=== PATIENT | male | born 1950 | race Caucasian/White ===

== ENCOUNTER 2019-09-25 11:54 | Emergency (ER) | payer OTHER ==
[2019-09-25 12:06] VITALS: BMI 25.0
--- NOTE | 2019-09-25 13:06 | PDOC ---
History of Present Illness - General Chief Complaint: Weakness Stated Complaint: WELFARE CHECK Time Seen by Provider: 09/25/19 12:36 History Source: Patient Exam Limitations: No Limitations - History of Present Illness Initial Comments: Pt is a 69 yo M, with PMH of genetic cerebellar ataxia, insomnia, depression ( on seroquel, welbutrin, and remeron), and HTN, who is presenting via EMS from supervised facility for a welfare check. Pt states he overslept yesterday and today due to the cold weather, and missed his ride to the day program. Pt was awoken by EMS this morning, coming to check on him, concerned that "he may have hurt himself or be in a bad state". Pt ambulates at home with a cane and a walker, and denies any recent falls or head trauma. Pt states he has been taking his medication as prescribed, and denies any SI/HI. He states he used to use alcohol and "downer pills a long time ago," and has not had any recent use. Pt denies any recent fevers/chills, hallucinations, headache, vision changes, syncope, chest pain, palpitations, SOB, nausea/vomiting, abdominal pain, urinary symptoms, diarrhea/constipation, or leg swelling. Pt feels safe in his living situation, has working water and electricity, and food at home. He states he has been eating and drinking as usual. Allergies: NKDA Social: Pt smokes ~4 cigarettes per day. Pt denies any alcohol or non- prescribed drug use. Pt denies any recent travel or sick contacts. Surgical: no relevant history. Family: Sister - cerebellar ataxia 09/25/19 15:40 Past History - Travel Traveled outside of the country in the last 30 days: No Close contact w/someone who was outside of country & ill: No - Past Medical History Allergies/Adverse Reactions: Allergies Allergy/AdvReac Type Severity Reaction Status Date / Time Penicillins Allergy Verified 09/25/19 12:07 Home Medications: Ambulatory Orders NK [No Known Home Medication] 09/25/19 Anemia: Yes COPD: No HTN: Yes Other medical history: BIPOLAR, DEPRESSION, ANXIETY - Psycho Social/Smoking Cessation Hx Smoking History: Current every day smoker Number of Cigarettes Smoked Daily: 5 Information on smoking cessation initiated: No Review of Systems - Review of Systems Able to Perform ROS?: Yes Is the patient limited Dutch proficient: No Constitutional: Yes: Weight Stable. No: Chills, Diaphoresis, Fever, Loss of Appetite, Malaise, Weakness HEENTM: No: Recent change in vision, Nose Congestion, Throat Pain, Throat Swelling, Difficulty Swallowing Respiratory: No: Cough, Orthopnea, Shortness of Breath Cardiac (ROS): No: Chest Pain, Edema, Irregular Heart Rate, Lightheadedness, Palpitations, Syncope, Chest Tightness ABD/GI: No: Constipated, Diarrhea, Nausea, Poor Appetite, Poor Fluid Intake, Vomiting : No: Burning, Dysuria, Frequency, Flank Pain, Hematuria, Pain, Urgency Musculoskeletal: No: Back Pain, Joint Pain, Muscle Pain, Muscle Weakness Integumentary: No: Rash Neurological: Yes: Ataxia (at baseline, no recent changes). No: Headache, Seizure, Weakness, Unsteady Gait, Dizziness Psychiatric: Yes: Depression (at baseline, taking medications). No: Sleep Pattern Change, Emotional Problems, Mood Swings, Change in Appetite Endocrine: No: Increased Urine, Change in Weight Hematologic/Lymphatic: No: Anemia, Blood Clots, Easy Bleeding, Easy Bruising All Other Systems: Reviewed and Negative *Physical Exam - Vital Signs Last Vital Signs Temp Pulse Resp BP Pulse Ox 97.5 F L 72 18 129/70 97 09/25/19 12:00 09/25/19 12:00 09/25/19 12:00 09/25/19 12:00 09/25/19 12:00 - Physical Exam Comments: Vitals stable, pt afebrile. Pt in NAD, normal body habitus. Uses cane in ED for ambulation, able to walk on his own without assistance. Pt alert and oriented x3. Answers all questions cooperatively and appropriately. olive packer generally intact, muscular strength and sensation intact. No midline spinal tenderness, step-offs, or crepitus. Head normocephalic, atraumatic. Eyes PERRLA, EOMI. Oropharynx without erythema or exudates, no LAD b/l. No nasal congestion. Hearing intact. Clear heart sounds, S1/S2, no JVD, b/l pedal edema, or heart murmur. Clear lung sounds, no respiratory distress, wheezes, crackles, or accessory muscle use. No abdominal or CVA tenderness to palpation, no rebound, no guarding. Abdomen soft, non-distended, and with normoactive bowel sounds. Skin without jaundice or rash. 09/25/19 15:49 Medical Decision Making - Medical Decision Making Pt was seen at bedside, also will be seen by attending Dr. Root. Pt presenting for welfare check ([phone], social worker masters Ira Rayo). Pt states he missed his ride due to the cold weather and not wanting to leave his apartment in the cold. Facility is concerned that pt may be drinking alcohol with his medication and that he is depressed. Pt denies any SI/HI, states taking medications appropriately, denies drinking alcohol or drug use, and does not wish to have a psychiatric evaluation at this time. Provided 650 mg PO tylenol for improvement of mild hip pain (baseline for pt). Pt has been medically cleared (no SI/HI, clinically sober, ambulating with his cane in ED, speaking in full sentences without slurring, no nystagmus, does not smell of alcohol). Spoke with facility and faxed discharge papers ([phone]) . Spoke with social work and BAIT PAINTER at facility, explained disposition. Pt safe for d/c back to facility. Arranging transportation. Pt has tolerated PO intake in ED and has been stable and cooperative. 09/25/19 15:49 Discharge - Discharge Information Problems reviewed: Yes Clinical Impression/Diagnosis: Evaluation by medical service required Condition: Good Disposition: HOME - Admission No - Follow up/Referral - Patient Discharge Instructions Patient Printed Discharge Instructions: DI for Depression -- Adult Additional Instructions: You were seen in the ER today for a welfare check, and are medically cleared. You denied any suicidal or homicidal ideation, and you state you are taking your medications as prescribed. You denied any drug or alcohol use, except for remotely in the past. Please follow-up with your psychiatrist to discuss any concerns you may have with your medication within 1-2 days to discuss your visit and make sure your symptoms have improved. Please return to the ER or call if you have any thoughts of hurting yourself or others, lethargy, development of fevers or chills, loss of consciousness, inability to tolerate food or fluids, or any other concerns. - Post Discharge Activity Work/Back to School Note: Back to Work
--- NOTE | 2019-09-25 14:02 | PDOC ---
Documentation entered by Wyatt Arce SCRIBE, acting as scribe for Radha Root MD. Radha Root MD: This documentation has been prepared by the Claude barragan Nirvannie, SCRIBE, under my direction and personally reviewed by me in its entirety. I confirm that the documentation accurately reflects all work, treatment, procedures, and medical decision making performed by me. Attending Attestation - Resident Resident Name: ReynaLoli - ED Attending Attestation I have performed the following: I have examined & evaluated the patient, The case was reviewed & discussed with the resident, I agree w/resident's findings & plan - HPI HPI: 09/25/19 14:01 69 YOM with BIPOLAR, DEPRESSION, ANXIETY, insomnia, genetic cerebellar ataxia, HTN, presenting from facility for welfare check. Pt states he overslept yesterday and today due to the cold weather, and missed his ride to the day program. Pt was awoken by EMS this morning, coming to check on him, concerned that "he may have hurt himself or be in a bad state". Pt ambulates at home with a cane and a walker, and denies any recent falls or head trauma. Pt states he has been taking his medication as prescribed, and denies any SI/HI. He states he used to use alcohol and "downer pills a long time ago," and has not had any recent use. no other complaints except for chronic pain in his right leg. Pt feels safe in his living situation, has working water and electricity, and food at home. He states he has been eating and drinking as usual. 09/25/19 16:02 - Physicial Exam PE: 09/25/19 14:01 Agree with the resident's HPI and PE as documented in the electronic medical record. NAD, well appearing, comfortable, awake and alert. EOMI, PERRL, nl conjunctiva ; neck supple. no respiratory distress.. RRR, lungs clear. HARLEY x4, no focal neuro deficits. No peripheral edema. normal color for ethnicity, WWP. speech clear. no SI. no HI. chronic right clavicle deformity, nontender 09/25/19 14:30 09/25/19 14:55 - Medical Decision Making 09/25/19 14:01 Vital Signs Temp Pulse Resp BP Pulse Ox 97.5 F L 72 18 129/70 97 09/25/19 12:00 09/25/19 12:00 09/25/19 12:00 09/25/19 12:00 09/25/19 12:00 D/W facility transfer back no acute psych intervention. no SI or HI, no complaints. no cp or sob, dizziness or syncope. he is well appearing, will arrange transport back. 09/25/19 16:03
[2019-09-25] MEDS ORDERED: ACETAMINOPHEN 325 MG TABLET (FP) PO ONE (14:54)
[2019-09-25] MEDS ORDERED: ACETAMINOPHEN 325 MG TABLET (FP) ONE (14:57)
[2019-09-25 17:06] VITALS: BP 130/60; PULSE 72; TEMP 98.6
== END 2019-09-25 17:38 | disposition home or self-care (01) ==
LOC: JER 11:54
DX: Z00.00 Encounter for general adult medical examination without abnormal findings (principal); F41.9 Anxiety disorder, unspecified; F31.9 Bipolar disorder, unspecified; F17.210 Nicotine dependence, cigarettes, uncomplicated; G47.00 Insomnia, unspecified; G11.8 Other hereditary ataxias; Z99.89 Dependence on other enabling machines and devices
CPT/HCPCS: 99282-25

== ENCOUNTER 2019-12-16 13:50 | Inpatient (IN) | payer OTHER ==
--- NOTE | 2019-12-16 14:17 | PDOC ---
History of Present Illness - General Stated Complaint: FALL Time Seen by Provider: 12/16/19 13:53 - History of Present Illness Initial Comments: Sourav Estrada is a 59yo man with a PMH of HTN, former alcohol abuse w/ concern for relapse (per director of casework), bipolar disorder, schizoaffective disorder, neuropathy, genetic cerebellar ataxia who was BIBA due to AMS, concern for injury and inability to care for himself. Per EMS, Mr Estrada's rehabilitation case coordinator went to check on him at home, and the pt took 30 minutes to crawl to the door. EMS also reports that his apartment was filthy with dirty clothing, urine, and feces scattered thruoghout. His vitals were WNL and glucose was 92 when EMS arrived. They state that he was oriented x2. Currently, Mr Estrada is oriented to self and knows his age. He knew he was in a hospital one of two times he was asked, and he states that it is late December. He does not make any other statements that logically answer questions or address his complaints and is unable to answer any questions about why he is in the hospital. Past History - Past Medical History Allergies/Adverse Reactions: Allergies Allergy/AdvReac Type Severity Reaction Status Date / Time Penicillins Allergy Verified 12/16/19 14:25 Home Medications: Ambulatory Orders Bupropion HCl [Bupropion Xl] 150 mg PO DAILY 12/16/19 Docusate Sodium [Docusate 100 mg] 100 mg PO BID 12/16/19 Gabapentin 400 mg PO DAILY 12/16/19 Magnesium Oxide [Mag-Ox -] 400 mg PO DAILY 12/16/19 Mirtazapine 30 mg PO DAILY 12/16/19 Propranolol HCl 10 mg PO DAILY 12/16/19 Quetiapine Fumarate [Seroquel -] 200 mg PO HS 12/16/19 Anemia: Yes COPD: No HTN: Yes - Psycho Social/Smoking Cessation Hx Smoking History: Current every day smoker Number of Cigarettes Smoked Daily: 5 Review of Systems - Review of Systems Comments:: Could not obtain due to altered mental status *Physical Exam - Physical Exam General: Sleeping, difficult to wake, cachectic. Multiple injuries in different states of healing. HEENT: Dried blood around mouth and on right forehead. Dry lips. Pupils equal and reactive. No contusion over scalp, no posterior neck tenderness. Cards: RRR, no murmur appreciated Pulm: Comfortable on room air, clear to auscultation bilaterally Abd: Soft, nontender, nondistended Ext: Numerous bruises over extremities w/ occasional scabbed and open abrasions , multiple states of healing. New abrasions to dorsal surface of b/l toes without active bleeding. Nontender deformity over mid right clavicle. Moves all extremities. 1+ BLE pitting edema, R>L. Skin: Numerous superifical injuries as above Neuro: Sleeping, difficult to wake but alert once wakened. Oriented to self, age. Intermittently oriented to "hospital." CN grossly intact, normal speech, motor/sensory grossly intact and symmetric Psych: Pleasant ED Treatment Course - LABORATORY CBC & Chemistry Diagram: 12/16/19 14:30 12/16/19 14:30 - RADIOLOGY Radiology Studies Ordered: Category Date Time Status CHEST X-RAY PORTABLE* [RAD] Stat Radiology 12/16/19 14:10 Ordered Medical Decision Making - Medical Decision Making 12/16/19 14:12 Sourav Estrada is a 59yo man with a PMH of HTN, former alcohol abuse w/ concern for relapse (per director of casework), bipolar disorder, schizoaffective disorder, neuropathy, genetic cerebellar ataxia who was BIBA due to AMS, concern for injury and inability to care for himself. He is somnolent on exam and oriented only to self. Per EMS, he and his house were dirty and the pt was unable to ambulate today. - Numerous contusions, abrasions on exam, especially on extremities. Dried blood over face. Consistent with multiple falls - Unclear whether Mr Estrada fell or was altered. No fever indicating infection. Possible history of alcohol - CBC, CMP, trop, EKG, CXR, UA, UCx, CT head, CT c-spine 12/16/19 17:55 - Labs reviewed. Notable for leukocytosis to 12, Cr 1.4. No other concerning abnormalities - CT head, c-spine without acute injury. C6-C7 disc degeneration noted - EKG w/ sinus rhythm, HR 81, 1st degree block with FL 240, wide QRS at 240, LVF , left axis, no ST elevation 12/16/19 19:11 - No significant abnormalities seen on CT chest/abd/pelvis - Will send microblog for admission for multiple falls, inability to ambulate, inability to care for self 12/16/19 21:24 - UA grossly positive. Abx ordered - CT abd/pelvis with indication of chronic injury w/ b/l rib fractures, soft tissue thickening over abdomen. Left-sided fractures noted as possibly acute, but pt nontender on exam. Also notes overdistended bladder. 12/16/19 22:15 - Patient endorsed to primary team, Dr Ca. Will admit to Dr Ovalle's service. Discussed with Gardenia Root and Jami Joseph PGY2 Discharge - Discharge Information Problems reviewed: Yes Clinical Impression/Diagnosis: Multiple falls, Unable to ambulate, Impaired mobility and ADLs UTI (urinary tract infection) Qualifiers: Urinary tract infection type: site unspecified Hematuria presence: without hematuria Qualified Code(s): N39.0 - Urinary tract infection, site not specified - Admission Yes - Follow up/Referral - Patient Discharge Instructions - Post Discharge Activity
[2019-12-16] MEDS ORDERED: SODIUM CHLORIDE 0.9% 500 ML INFUS.BAG IV ONE (14:41)
--- NOTE | 2019-12-16 15:21 | PDOC ---
Documentation entered by Wyatt Arce SCRIBE, acting as scribe for Radha Root MD. Radha Root MD: This documentation has been prepared by the Claude barragan Nirvannie, SCRIBE, under my direction and personally reviewed by me in its entirety. I confirm that the documentation accurately reflects all work, treatment, procedures, and medical decision making performed by me. Attending Attestation - Resident Resident Name: Alexia Joseph - ED Attending Attestation I have performed the following: I have examined & evaluated the patient, The case was reviewed & discussed with the resident, I agree w/resident's findings & plan, Exceptions are as noted - HPI HPI: 12/16/19 16:02 HPI The patient is a 59YOM with significant past medical history of HTN, former alcohol abuse w/ concern for relapse (per foster care case manager), bipolar disorder, schizoaffective disorder, neuropathy, genetic cerebellar ataxia who presents to the ED via EMS with AMS. As per EMS, they were called by the social sciences lecturer secondary to the patient taking 30 min to crawl to the door upon their arrival. EMS notes the social sciences lecturer was concerned that the patient could no longer care for himself secondary to multiple bruises, urine, and feces. History is limited secondary to patients clinical condition. Allergies: PCN Past Medical History: HTN, former alcohol abuse w/ concern for relapse (per foster care case manager), bipolar disorder, schizoaffective disorder, neuropathy, genetic cerebellar ataxia Social history: Lives alone Former alcohol abuse. No tobacco or drug use. Meds: as documented in EMR - Physicial Exam PE: 12/16/19 16:02 General: GCS 15 NAD, +Disheveled. +Looks older than stated age. HEENT: +Small superficial left medial upper eye laceration. PERRL, EOMI. Airway intact. No battles sign or raccoon eyes. No e/o ocular. +Adentulous. No e/o septal hematoma, nasal bridge stable. Neck: neck supple, no midline C spine tenderness or deformity, ROM intact. No anterior mass or crepitus, trachea midline. Resp: Lungs clear bilaterally Chest: no clavicle or chest wall tenderness or crepitus CVS: RRR, 2+ pulses throughout. Abdomen: Abdomen soft, nontender, nondistended. Back: Back nontender, no midline spinal tenderness along cervical/thoracic/ lumbar spine, FROM, no stepoffs. MSK: +Ecchymosis to the blt shins. +Abrasions to the left lateral knees with ecchymosis. +healing ecchymosis to the blt thighs. Pelvis stable, Extremities symmetric,+old right upper clavicular deformities; no pain on axial loading. FROM in all extrem. Neuro: Alert, oriented appropriately. CN II-XII grossly symmetric and intact. no focal neuro deficits. Sensation and strength intact throughout. Skin: +Ulceration to the right 2nd and 3rd toes. Superficial ulceration to the left toes. Ulceration to the bilateral knees, normal color and well perfused. No seatbelt signs at neck, chest or abdomen. - Medical Decision Making 12/16/19 15:21 Vital Signs Temp Pulse Resp BP Pulse Ox 97.6 F 79 22 H 110/68 95 12/16/19 14:17 12/16/19 14:17 12/16/19 14:17 12/16/19 14:17 12/16/19 14:17 Vital signs reviewed within normal limits, patient is disheveled not in good condition guarded, CT horowitz scans indicated to evaluate for intra-abdominal injury given patient is unable to provide much history in the state that he was found in by ambulance labs and lytes, mild elevation in ck CT horowitz scans eval for trauma/bleeding. CTH/c spine, unwitnessed fall and poor condition/disheveled. Bedside E fast was done negative for intra-peritoneal free fluid normal lung sliding, no effusions. CT head with atrophic changes otherwise no focal intracranial lesion or bleed or CVA, C-spine with degenerative changes no acute fracture or subluxation CT horowitz scans were done no intracranial head injury, there is focal subcutaneous soft tissue thickening along the left posterior lateral aspect of the abdomen this could be from sequelae of unwitnessed trauma also focal soft tissue thickening of the adjacent left quadratus lumborum muscle, possible hepatic cirrhosis, gastrohepatic ligament varices and splenorenal shunt, over distended bladder otherwise no acute pathology is noted CT chest with possible rib fractures on the left 7-8th ribs as well as chronic bilateral rib fractures. Mild T6 vertebral body compression fracture likely chronic with its appearance and trace left-sided pleural effusion no O2 requirement, no desats with the rib fx, unreliable exam as pt has been somnolent, arousable to pain stimuli and voice but does not wince to palpation of the area on 2ndary exam. admission. unable to care for self. unsafe for discharge admitting to hospitalist service. 12/18/19 08:55 12/18/19 08:56 Heart Score/ECG Review #1 ECG reviewed & interpreted by me at: 14:30 General ECG Interpretation: Sinus Rhythm, Normal Rate, Normal Intervals Compared to previous ECG there are: Previous ECG unavail 12/16/19 15:20 EKG normal sinus rhythm 81 bpm, first-degree heart block, narrow QRS, ST and T wave segments and morphology normal. Nonspecific T wave abnormalities
[2019-12-16 15:51] LABS: BASO % 0.1 % (0-2.0); HEMATOCRIT 30.3 % (35.4-49); HEMOGLOBIN 10.3 GM/dL (11.7-16.9); LYMPH % 5.4 % (8-40); MCH 33.6 pg (25.7-33.7); MEAN CELL VOLUME 98.9 fl (80-96); MEAN PLT VOLUME 8.4 fl (7.5-11.1); MONO % 5.7 % (3.8-10.2); NEUT % 87.8 % (42.8-82.8); PLATELET COUNT 184 K/MM3 (134-434); RBC 3.07 M/mm3 (4.00-5.60); RDW 15.9 % (11.9-15.9); WHITE BLOOD COUNT 12.5 K/mm3 (4.0-10.0)
[2019-12-16 16:04] LABS: INR 1.15 (0.83-1.09); PROTHROMBIN TIME (PATIENT) 13.6 SEC (9.7-13.0)
[2019-12-16 16:07] LABS: ACTIVATED PTT 26.7 SECONDS (25.2-36.5)
[2019-12-16 16:47] LABS: ALK PHOS 162 U/L (45-117); ANION GAP 9 MMOL/L (8-16); BILIRUBIN,TOTAL 1.3 mg/dL (0.2-1); BLOOD UREA NITROGEN 19.4 mg/dL (7-18); CALCIUM 9.4 mg/dL (8.5-10.1); CHLORIDE 107 mmol/L (98-107); CO2 25 mmol/L (21-32); CREATININE 1.4 mg/dL (0.55-1.3); GLUCOSE,RANDOM 79 mg/dL (74-106); POTASSIUM 3.5 mmol/L (3.5-5.1); SGOT/AST 54 U/L (15-37); SGPT/ALT 30 U/L (13-61); SODIUM 141 mmol/L (136-145); TOT PROT 7.2 g/dl (6.4-8.2)
[2019-12-16 19:49] LABS: EPI CELLS 87.2 /HPF (0-5/HPF); HYALINE CASTS 1068.86 /lpf (0-8); URINE RBC 141.8 /hpf (0-4); URINE WBC 14663 /hpf (0-5)
[2019-12-16 19:54] LABS: URINE APPEARANCE TURBID; URINE BILIRUBIN NEGATIVE (NEGATIVE); URINE COLOR YELLOW; URINE GLUCOSE (UA) NEGATIVE (NEGATIVE); URINE KETONE TRACE (NEGATIVE)
[2019-12-16 19:55] LABS: URINE LEUK ESTERASE LARGE (NEGATIVE); URINE NITRITE PSITIVE (NEGATIVE); URINE PROTEIN 100 (NEGATIVE); URINE UROBILINOGEN 0.2 mg/dL (0.2-1.0)
[2019-12-16 20:18] LABS: COCAINE, UR NEGATIVE ng/ml (CUTOFF=300); METHADONE, UR NEGATIVE ng/ml (CUTOFF=300); OPIATES, URI NEGATIVE ng/ml (CUTOFF=300); PHENCYCLIDINE,URINE NEGATIVE ng/ml (CUTOFF=25); URINE AMPHETAMINES NEGATIVE ng/ml (CUTOFF=500); URINE BARBITURATES NEGATIVE ng/ml (CUTOFF=200); URINE BENZODIAZEPINES NEGATIVE ng/ml (CUTOFF=200)
--- NOTE | 2019-12-16 20:50 | PN ---
Teaching Attending Note Name of Resident: Duglas Ca ATTENDING PHYSICIAN STATEMENT I saw and evaluated the patient. I reviewed the resident's note and discussed the case with the resident. I agree with the resident's findings and plan as documented. SUBJECTIVE: Patient is a 59 year old man with a PMH of HTN, Alcohol abuse, Bipolar disorder , Schizoaffective disorder, Neuropathy, Genetic cerebellar ataxia and Penicillin allergy BIBA due to AMS, concern for injury and inability to care for himself. Per EMS, his case resolution specialist went to check on him at home, and the patient took 30 minutes to crawl to the door. EMS also reports that his apartment was filthy with dirty clothing, urine, and feces scattered throughout. His vitals were WNL and glucose was 92 when EMS arrived. They state that he was oriented to person and place. In the ER he was oriented to self and knows his age. He knew he was in a hospital one of two times he was asked, and he states that it is late December. He does not make any other statements that logically answer questions or address his complaints and is unable to answer any questions about why he is in the hospital. Denies tobacco or illicit drug use. No sick contacts or recent travels. History is limited secondary to patient s clinical condition. OBJECTIVE: Alert Vital Signs Period Temp Pulse Resp BP Sys/Penn Pulse Ox Last 24 Hr 97.6 F 74-83 20-22 110-115/59-69 95-98 HEENT: No Jaundice, eye redness or discharge, PERRLA, EOMI. Normocephalic, atraumatic. External ears are normal and hearing is grossly intact. No nasal discharge. Neck: Supple, nontender. No palpable adenopathy or thyromegaly. No JVD Chest: Good effort. Clear to auscultation and percussion. Heart: Regular. No S3, rub or murmur Abdomen: Not distended, soft, nontender and no HSM. No rebound or guarding. Normal bowel sounds. Ext: Peripheral pulses intact. No leg edema. Area of erythema and tenderness on the right valerio. Skin: Warm and dry. Multiple brusies and ecchymosis. No petechiae or rash. Neuro: Alert. Oriented to person and place. CN 2-12 grossly intact. Sensation grossly intact in all four extremities and DTR are symmetric. Psych: Appropriate mood and affect. Good insight. Home Medications Medication Instructions Recorded Bupropion HCl [Bupropion Xl] 150 mg PO DAILY 12/16/19 Docusate Sodium [Docusate 100 mg] 100 mg PO BID 12/16/19 Gabapentin 400 mg PO DAILY 12/16/19 Magnesium Oxide [Mag-Ox -] 400 mg PO DAILY 12/16/19 Mirtazapine 30 mg PO DAILY 12/16/19 Propranolol HCl 10 mg PO DAILY 12/16/19 Quetiapine Fumarate [Seroquel -] 200 mg PO HS 12/16/19 Abnormal Lab Results 12/16/19 12/16/19 12/16/19 14:30 14:30 14:30 WBC 12.5 H RBC 3.07 L Hgb 10.3 L Hct 30.3 L MCV 98.9 H Absolute Neuts (auto) 11.0 H Neutrophils % 87.8 H Lymphocytes % 5.4 L PT with INR 13.60 H INR 1.15 H BUN 19.4 H Creatinine 1.4 H Total Bilirubin 1.3 H AST 54 H Alkaline Phosphatase 162 H Creatine Kinase 349 H CK-MB (CK-2) 9.6 H Albumin 3.0 L Urine Ketones Salicylates 12/16/19 12/16/19 18:55 20:17 WBC RBC Hgb Hct MCV Absolute Neuts (auto) Neutrophils % Lymphocytes % PT with INR INR BUN Creatinine Total Bilirubin AST Alkaline Phosphatase Creatine Kinase CK-MB (CK-2) Albumin Urine Ketones Trace H Salicylates < 1.7 L ASSESSMENT AND PLAN: 1. UTI/Multiple falls - Etiology of multiple falls and inability to ambulate is unclear. Sepsis workup done. Has UTI and will treat with IV Aztreonam pending culture. Will also treat with Doxycycline for possible right valerio cellulitis. I allergic to penicillin and QTc is prolonged. CT head, C-spine without acute injury. C6-C7 disc degeneration noted. No significant abnormalities seen on CT chest/abdomen/pelvis. CXR shows cardiomegaly, unfolded aorta, hilar prominence and increased interstitial markings. EKG shows NSR with rate of 81, 1st degree AV block with IN 240, wide QRS at 240, LVF, left axis, no ST elevation and prolonged QTc. Will hydrate gently to address rhabdomyoysis, get RUQ sonogram, NH3, hepatitis serology and trend LFTs. Consult PT and Neurology. Needs referrral to inpatient Rehab facility. Will continue comprehensive care for all of patients comorbid conditions. 2. Hypoalbuminemia - Possibly due to combined effects of malnutrition and inflammation associated with comorbid chronic conditions. Will ensure adequate dietary protein intake and also consult pulp press tender. 3. MARKO - May be partly due to rhabdomyolysis. Will hydrate and monitor urine output. Monitor calcium and phosphate. Will consult nephrology and avoid nephrotoxic agents such as NSAIDS, aminoglycosides, contrast dyes and certain Alternative medicine products. 4. Anemia - Likely multifactorial. Will do basic anemia work up including serial stool guaiacs, reticulocyte count and iron studies. Would benefit from Procrit therapy once iron replete. 5. Alcohol abuse - Implement [facility] alcohol withdrawal protocol and do neurochecks. Implement seizure, fall and aspiration precautions. Treat with thiamine and folic acid and monitor electrolytes (Ca,Mg,K,P). Counseled patient about abstaining from alcohol. Will consult radiological health specialist and refer to alcohol detox upon discharge. 6. Hypertension - Restart suitable outpatient antihypertensive drugs when clinically appropriate. Revise regimen to ensure [id number] excellent BP control and guidance counselor patient on the injurious effects of uncontrolled hypertension. Nonpharmacologic measures to control hypertension like weight loss , salt restriction and exercise discussed. Importance of adherence to treatment regimen and attainment of normotension emphasized. 7. DVT prophylaxis - Heparin 5000u sq tid. 8. Advance directives - Full code
[2019-12-16] MEDS ORDERED: CEFTRIAXONE 1,000 MG in DEXTROSE 5%-WATER - 50 ML IVPB ONE (21:24)
[2019-12-16] MEDS ORDERED: CEFTRIAXONE 1 GM/50 ML BAG ONE (21:26)
[2019-12-17] MEDS ORDERED: QUEtiapine FUMARATE 100 MG TABLET (FP) ONE ×2 (00:45→20:26)
[2019-12-17] MEDS ORDERED: QUEtiapine FUMARATE 200 MG TABLET PO ONE (01:00)
[2019-12-17] MEDS ORDERED: FOLIC ACID INJECTION - 1 MG, THIAMINE HCL 100 MG, MULTIVIT INJECTION ADULT 10 ML in SOD... IVPB ONE (01:00)
[2019-12-17] MEDS: LACTATED RINGERS SOLUTION 1,000 ML/1,000 ML INFUS.BAG IV SCH ×2 (01:11→21:33)
--- NOTE | 2019-12-17 02:43 | HP ---
CHIEF COMPLAINT: fall, inability to ambulate PCP: unknown HISTORY OF PRESENT ILLNESS: Sourav Estrada is a 69 year old male with a past medical history of genetic cerebellar ataxia, insomnia, depression, HTN, bipolar disorder, schizoaffective disorder presenting after a home health care case manager checked in on the patient and was not able to get a response until he let her in after a half an hour of crawling on the floor. EMS was called and noted that the patient's apartment was in dissaray and there was urine and feces throughout the apartment and the patient was brought in for further evaluation. The social service coordinator had expressed to the ED staff that they believed that the patient had been using alcohol. There was also concern for recurrent falls and injury as EMS and the social service coordinator had noticed multiple bruises, maharaj, healing wounds throughout the patient's body. On interview the patient was not able to give a coherent story noting that he had fallen 2 weeks ago but was on the floor yesterday, went food shopping 2 days ago and went to a bar with his friends. Only endorsed hip pain at first but noted that he could move his legs well and denied hip pain later in the interview. Denied cp, sob, abd pain, n/v/c/d, dizziness, lightheadedness, fever , chills, visual changes, dysuria, hematuria, frequency, urgency, hesitancy. Endorsed that he does drink alcohol. Denied sick contacts or recent travel. ER course was notable for: (1) WBC 12.5 with left shift, BUn 19.4 CRE 1.4 (unknown baseline), bilirubin 1.3 , AST 54, ALT 30, ALk phos 162, CK 349, UA with nitrites, +LE, many bacteria and WBC, elevated epithelial cells. Repeat UA with less epithelial cells and continued signs of infection. (2) CXR with R atelectasis, with moderate atrophy, no acute lesions. IMAGING: Cervical spine CT: The alignment is satisfactory. No gross acute fracture or dislocation are identified. No jumped facets are identified. Multilevel degenerative disc disease mainly at C6-C7 level with bilateral uncovertebral hypertrophy moderately narrowing the foramina and likely impinging both C7 nerve roots. Correlate for further evaluation. Moderate size calcified plaques at the common carotid bifurcation, bilaterally. Head CT: Moderate atrophy. No gross evidence of a focal intracranial lesion or hemorrhage is seen. Chest CT: Mildly offset fractures of the left seventh and eighth ribs are noted along the ventral lateral borders which are probably acute. Correlate clinically. Multiple chronic bilateral rib fractures are seen. A mild T6 vertebral body compression fracture is noted which is probably chronic in nature. However if there is focal symptomatology in that region MRI evaluation is suggested. There appears to be a trace left pleural effusion (versus representing mild focal pleural thickening). Abdomen/pelvis CT: Focal subcutaneous soft tissue thickening is seen along the left posterolateral aspect of the abdomen. Note is also made of focal soft tissue thickening of the subjacent left quadratus lumborum muscle. Probable hepatic cirrhosis. Gastrohepatic ligament varices. Splenorenal shunt. The urinary bladder appears mildly overdistended which could be on a physiologic basis versus mild/early retention. Correlate clinically. Recent Travel: denies PAST MEDICAL HISTORY: as above PAST SURGICAL HISTORY: denies Social History: Smoking: endorses being a current smoker with 4 cigarettes per day Alcohol: endorses being current drinker Drugs: denies Allergies Penicillins Allergy (Verified 12/16/19 14:25) HOME MEDICATIONS: Home Medications Medication Instructions Recorded Bupropion HCl [Bupropion Xl] 150 mg PO DAILY 12/16/19 Docusate Sodium [Docusate 100 mg] 100 mg PO BID 12/16/19 Gabapentin 400 mg PO DAILY 12/16/19 Magnesium Oxide [Mag-Ox -] 400 mg PO DAILY 12/16/19 Mirtazapine 30 mg PO DAILY 12/16/19 Propranolol HCl 10 mg PO DAILY 12/16/19 Quetiapine Fumarate [Seroquel -] 200 mg PO HS 12/16/19 REVIEW OF SYSTEMS CONSTITUTIONAL: Absent: fever, chills, diaphoresis, generalized weakness, malaise, loss of appetite, weight change HEENT: Absent: rhinorrhea, nasal congestion, visual changes CARDIOVASCULAR: Absent: chest pain, syncope, palpitations, irregular heart rate, lightheadedness , RESPIRATORY: Absent: cough, shortness of breath, dyspnea with exertion, orthopnea GASTROINTESTINAL: constipation Absent: abdominal pain, abdominal distension, nausea, vomiting, diarrhea, GENITOURINARY: Absent: dysuria, frequency, urgency, hesitancy, hematuria, flank pain, MUSCULOSKELETAL: hip pain Absent: myalgia, joint swelling, back pain, neck pain SKIN: bruising throughout and lesions on foot Absent: rash, itching, pallor HEMATOLOGIC/IMMUNOLOGIC: Absent: easy bleeding, easy bruising, lymphadenopathy, frequent infections ENDOCRINE: Absent: unexplained weight gain, unexplained weight loss, heat intolerance, cold intolerance NEUROLOGIC: Absent: headache, focal weakness or paresthesias, dizziness, unsteady gait, seizure, mental status changes, bladder or bowel incontinence PSYCHIATRIC: Absent: anxiety, depression, suicidal or homicidal ideation, hallucinations. PHYSICAL EXAMINATION Vital Signs - 24 hr 12/16/19 12/16/19 12/16/19 14:17 18:51 20:41 Temperature 97.6 F Pulse Rate 79 Pulse Rate [ 74 83 Radial] Respiratory 22 H 20 20 Rate Blood Pressure 110/68 Blood Pressure 113/69 115/59 L [Left Arm] O2 Sat by Pulse 95 98 97 Oximetry (%) GENERAL: Awake, alert, and oriented to self and location, not to time. In no acute distress. Pressured speech and hyperactive. Malnourished appearing. HEAD: Scattered bruising, no orourke sign or raccoon eyes. EYES: Pupils equal, round and reactive to light, extraocular movements intact. EARS, NOSE, THROAT: Oropharynx clear without exudates. Dry mucous membranes. NECK: Normal range of motion, supple without lymphadenopathy, JVD. LUNGS: Breath sounds equal, clear to auscultation bilaterally. No wheezes, and no crackles. No accessory muscle use. HEART: Regular rate and rhythm, normal S1 and S2 without murmur. ABDOMEN: Soft, nontender, not distended, normoactive bowel sounds, no guarding, no rebound, no masses. MUSCULOSKELETAL: Normal range of motion at all joints. No bony deformities or tenderness. UPPER EXTREMITIES: 2+ pulses, warm, well-perfused. No cyanosis. No peripheral edema. LOWER EXTREMITIES: 2+ pulses, warm, well-perfused. No calf tenderness. No peripheral edema. NEUROLOGICAL: Cranial nerves II-XII intact. 4/5 muscle strength on the bilateral lower extremities. 5/5 on the upper extremities. Sensation intact to gross touch throughout. Dysmetria on FTN R>L. PSYCHIATRIC: Somewhat cooperative. Tangential and pressured speech. Non-violent and non-frightening delusional thought. SKIN: Warm, dry, decreased turgor, many scattered excoriations, ecchymoses, scabbing sounds. R valerio area of erythema, warmth, and tenderness to the touch. Laboratory Results - last 24 hr 12/16/19 12/16/19 12/16/19 14:30 14:30 14:30 WBC 12.5 H RBC 3.07 L Hgb 10.3 L Hct 30.3 L MCV 98.9 H MCH 33.6 MCHC 34.0 RDW 15.9 Plt Count 184 MPV 8.4 Absolute Neuts (auto) 11.0 H Neutrophils % 87.8 H Lymphocytes % 5.4 L Monocytes % 5.7 Eosinophils % 1.0 Basophils % 0.1 Nucleated RBC % 0 PT with INR 13.60 H INR 1.15 H PTT (Actin FS) 26.7 Sodium 141 Potassium 3.5 Chloride 107 Carbon Dioxide 25 Anion Gap 9 BUN 19.4 H Creatinine 1.4 H Est GFR (CKD-EPI)AfAm 58.99 Est GFR (CKD-EPI)NonAf 50.90 Random Glucose 79 Calcium 9.4 Total Bilirubin 1.3 H AST 54 H ALT 30 Alkaline Phosphatase 162 H Creatine Kinase 349 H Creatine Kinase Index 2.7 CK-MB (CK-2) 9.6 H Troponin I < 0.02 Total Protein 7.2 Albumin 3.0 L Urine Color Urine Appearance Urine pH Ur Specific [place] Urine Protein Urine Glucose (UA) Urine Ketones Urine Blood Urine Nitrite Urine Bilirubin Urine Urobilinogen Ur Leukocyte Esterase Urine WBC (Auto) Urine RBC (Auto) Urine Casts (Auto) U Pathogenic Cast Auto U Epithel Cells (Auto) Urine Bacteria (Auto) Salicylates Opiates Screen Methadone Screen Acetaminophen Barbiturate Screen Phencyclidine Screen Ur Amphetamines Screen MDMA (Ecstasy) Screen Benzodiazepines Screen Cocaine Screen U Marijuana (THC) Screen Alcohol, Quantitative 12/16/19 12/16/19 12/16/19 14:30 18:55 18:55 WBC RBC Hgb Hct MCV MCH MCHC RDW Plt Count MPV Absolute Neuts (auto) Neutrophils % Lymphocytes % Monocytes % Eosinophils % Basophils % Nucleated RBC % PT with INR INR PTT (Actin FS) Sodium Potassium Chloride Carbon Dioxide Anion Gap BUN Creatinine Est GFR (CKD-EPI)AfAm Est GFR (CKD-EPI)NonAf Random Glucose Calcium Total Bilirubin AST ALT Alkaline Phosphatase Creatine Kinase Creatine Kinase Index CK-MB (CK-2) Troponin I Total Protein Albumin Urine Color Yellow Urine Appearance Turbid Urine pH 6.0 Ur Specific [place] 1.022 Urine Protein 100 Urine Glucose (UA) Negative Urine Ketones Trace H Urine Blood Moderate Urine Nitrite Psitive Urine Bilirubin Negative Urine Urobilinogen 0.2 Ur Leukocyte Esterase Large Urine WBC (Auto) 39362 Urine RBC (Auto) 141.8 Urine Casts (Auto) 1068.86 U Pathogenic Cast Auto Negative U Epithel Cells (Auto) 87.2 Urine Bacteria (Auto) 2009.7 Salicylates Opiates Screen Negative Methadone Screen Negative Acetaminophen Barbiturate Screen Negative Phencyclidine Screen Negative Ur Amphetamines Screen Negative MDMA (Ecstasy) Screen Negative Benzodiazepines Screen Negative Cocaine Screen Negative U Marijuana (THC) Screen Negative Alcohol, Quantitative < 3 12/16/19 12/16/19 20:17 20:17 WBC RBC Hgb Hct MCV MCH MCHC RDW Plt Count MPV Absolute Neuts (auto) Neutrophils % Lymphocytes % Monocytes % Eosinophils % Basophils % Nucleated RBC % PT with INR INR PTT (Actin FS) Sodium Potassium Chloride Carbon Dioxide Anion Gap BUN Creatinine Est GFR (CKD-EPI)AfAm Est GFR (CKD-EPI)NonAf Random Glucose Calcium Total Bilirubin AST ALT Alkaline Phosphatase Creatine Kinase Creatine Kinase Index CK-MB (CK-2) Troponin I Total Protein Albumin Urine Color Urine Appearance Urine pH Ur Specific [place] Urine Protein Urine Glucose (UA) Urine Ketones Urine Blood Urine Nitrite Urine Bilirubin Urine Urobilinogen Ur Leukocyte Esterase Urine WBC (Auto) Urine RBC (Auto) Urine Casts (Auto) U Pathogenic Cast Auto U Epithel Cells (Auto) Urine Bacteria (Auto) Salicylates < 1.7 L Opiates Screen Methadone Screen Acetaminophen <2.0 Barbiturate Screen Phencyclidine Screen Ur Amphetamines Screen MDMA (Ecstasy) Screen Benzodiazepines Screen Cocaine Screen U Marijuana (THC) Screen Alcohol, Quantitative EKG--> 1st degree AV block, left axis deviation, QRS widening and LVH, no ST segment changes, QTc 520 ASSESSMENT/PLAN: Sourav Estrada is a 69 year old male with a past medical history of genetic cerebellar ataxia, insomnia, depression, HTN, bipolar disorder, schizoaffective disorder admitted for poor ability to ambulate likely secondary to cerebellar ataxia and UTI. Poor Ability to Ambulate - with history of cerebellar ataxia and UTI - UA as above - CT head, cervical spine, chest, abd/pelvis as above - aztreonam 0.5g q12, has PCN allergy and long QTc - ID consulted - Ucx - Physical therapy - social work consult - continue to monitor CK and gently hydrate at LR 75cc/hr - neurology consulted - will likely need SNF R valerio cellulitis - doxycycline 100mg bid - ID consulted MARKO - likely in the setting of poor intake and rhabdomyolysis - kidney/bladder U/S - FeNa 0.6% suggesting pre-renal etiology, continue hydration with LR at 75cc/hr - renal consulted - bladder scan as CT noted overdistended urinary bladder, can consider ma if retaining Anemia - likely in setting of alcohol use - iron studies - B12/folate - FOBT - may benefit from iron supplementation Hepatic cirrhosis - as noted on CT - likely from alcohol abuse - hepatic panel ordered - Utox negative, alcohol negative, acetaminophen negative - RUQ U/S - ammonia level - continue to monitor Alcohol Abuse - currently CIWA 0 - banana bag - MVI, folate, thiamine - seizure, fall precautions, bedrest - continue to monitor for withdrawals - addiction medicine consulted HTN - on propranolol Schizoaffective Disorder/Bipolar - continue home seroquel, wellbutrin, mirtazapine - reevaluate need for medications as QTc prolonged DVT PPx - heparin 5000 units subq tid FEN - LR at 75cc/hr - continue to monitor electrolytes and replete as necessary - sodium controlled diet Dispo - continue to monitor on Med-surg Family Medical History Family Hx Nuerologic Problems: Sister (cerebellar ataxia) Visit type - Emergency Visit Emergency Visit: Yes ED Registration Date: 12/16/19 Care time: The patient presented to the Emergency Department on the above date and was hospitalized for further evaluation of their emergent condition. - New Patient This patient is new to me today: Yes Date on this admission: 12/17/19 - Critical Care Critical Care patient: No
[2019-12-17] MEDS ORDERED: AZTREONAM 0.5 GM in DEXTROSE 5%-WATER - 50 ML IVPB SCH (03:00)
[2019-12-17 03:15] LABS: EPI CELLS 7.1 /HPF (0-5/HPF); HYALINE CASTS 6 /lpf (0-8); PH,URINE 6.5 (5.0-8.0); URINE APPEARANCE TURBID; URINE BACTERIA 1723.5 /hpf (NEGATIVE); URINE BILIRUBIN NEGATIVE (NEGATIVE); URINE COLOR YELLOW; URINE GLUCOSE (UA) NEGATIVE (NEGATIVE); URINE KETONE TRACE (NEGATIVE); URINE LEUK ESTERASE 3+ (NEGATIVE); URINE NITRITE POSITIVE (NEGATIVE); URINE PROTEIN TRACE (NEGATIVE); URINE UROBILINOGEN 0.2 mg/dL (0.2-1.0); URINE WBC 990 /hpf (0-5)
[2019-12-17] MEDS ORDERED: AZTREONAM 0.5 GM in DEXTROSE 5%-WATER - 100 ML IVPB SCH (03:30)
[2019-12-17] MEDS ORDERED: HEPARIN NA (PORCINE) 5,000 UNITS/ML 1ML VIAL ONE (06:24)
[2019-12-17] MEDS: HEPARIN NA (PORCINE) 5,000 UNITS/ML 1ML VIAL SQ SCH ×3 (06:55→21:32)
[2019-12-17 08:16] LABS: BASO % 0.1 % (0-2.0); EOS % 2.6 % (0-4.5); HEMATOCRIT 28.8 % (35.4-49); HEMOGLOBIN 9.8 GM/dL (11.7-16.9); LYMPH % 9.9 % (8-40); MCH 33.8 pg (25.7-33.7); MEAN CELL VOLUME 99.5 fl (80-96); MEAN PLT VOLUME 8.2 fl (7.5-11.1); MONO % 6.7 % (3.8-10.2); NEUT % 80.7 % (42.8-82.8); PLATELET COUNT 173 K/MM3 (134-434); RDW 16.2 % (11.9-15.9); WHITE BLOOD COUNT 9.7 K/mm3 (4.0-10.0)
[2019-12-17 09:26] LABS: ALBUMIN 2.4 g/dl (3.4-5.0); BLOOD UREA NITROGEN 15.5 mg/dL (7-18); CALCIUM 8.9 mg/dL (8.5-10.1); MAGNESIUM 2.2 mg/dL (1.8-2.4); POTASSIUM 3.4 mmol/L (3.5-5.1); TOT PROT 6.2 g/dl (6.4-8.2)
[2019-12-17] MEDS ORDERED: ENOXAPARIN NA (PORCINE) 40 MG/0.4 ML DISP.SYRIN SQ SCH (10:00)
[2019-12-17] MEDS ORDERED: DOXYCYCLINE HYCLATE 100 MG CAPSULE PO SCH (10:00)
[2019-12-17] MEDS: DOCUSATE SODIUM 100 MG CAPSULE (FP) PO SCH ×2 (11:21→21:32)
[2019-12-17] MEDS: GABAPENTIN 400 MG CAPSULE PO SCH (11:22)
[2019-12-17] MEDS: MULTIVITAMINS (DAILY MVI) TABLET (FP) PO SCH (11:22)
[2019-12-17] MEDS: MAGNESIUM OXIDE 400 MG TABLET (FP) PO SCH (11:22)
[2019-12-17] MEDS: THIAMINE HCL 100 MG TABLET (FP) PO SCH (11:23)
[2019-12-17] MEDS: FOLIC ACID 1 MG TABLET (FP) PO SCH (11:23)
--- NOTE | 2019-12-17 12:18 | PN ---
Progress Note (short form) - Note Progress Note: ID CONSULT DICTATED CELLULITIS R LE R/O SEPSIS SECONDARY TO SKIN SOURCE UTI PCN ALLERGY AWAIT C/S EMPIRIC VANCOMYCIN/AZTREONAM
--- NOTE | 2019-12-17 12:42 | EKG ---
Test Reason : Blood Pressure : / mmHG Vent. Rate : 081 BPM Atrial Rate : 081 BPM P-R Int : 240 ms QRS Dur : 126 ms QT Int : 448 ms P-R-T Axes : 043 -39 058 degrees QTc Int : 520 ms SINUS RHYTHM WITH 1ST DEGREE A-V BLOCK POSSIBLE LEFT ATRIAL ENLARGEMENT LEFT AXIS DEVIATION LEFT VENTRICULAR HYPERTROPHY WITH QRS WIDENING ABNORMAL ECG NO PREVIOUS ECGS AVAILABLE Confirmed by INNA ROGERS, DORY ([id number]) on 12/17/2019 12:42:23 PM Referred By: Confirmed By:DORY KEITH MD
[2019-12-17] MEDS ORDERED: VANCOMYCIN 1 GRAM (PRE-DOCKED) 1,000 MG/250 ML BAG IVPB ONE (13:09)
--- NOTE | 2019-12-17 13:12 | CONS ---
INFECTIOUS DISEASE CONSULTATION DATE OF CONSULTATION: DATE OF DICTATION: 12/17/2019 HISTORY: The patient is a 69-year-old male who was evaluated for sepsis. History was obtained primarily from the chart as he does not give a reliable history. He was admitted to the hospital on December 16, 2019, after he was noted to have altered mental status. According to the chart, he was called upon by his director of casework services at home and was found to be in deplorable condition. The patient was disheveled with evidence of fecal and urinary incontinence. His residence was reported as being [facility]. He was taken to the emergency room where he was noted to have abrasions on his lower extremities. He does not give a reliable history. He denies any fall or loss of consciousness. He has no focal complaint at the present time. In the emergency room, he was also noted to have an elevated white blood cell count. Cultures were obtained. He was empirically treated with doxycycline and aztreonam. He denies any chest pain, shortness of breath, cough, or sputum production. Denies any dysuria, hematuria, vomiting, or diarrhea. PAST MEDICAL HISTORY: Positive for schizoaffective disorder, bipolar disorder, hypertension, alcohol abuse. ALLERGIES: PENICILLIN. Patient reports throat swelling at the age of 5 or 6. MEDICATIONS: Include aztreonam, doxycycline, Wellbutrin, Colace, folic acid, Neurontin, propranolol. SOCIAL HISTORY: He lives in the community. Apparently lives alone. He has a positive history of tobacco use. SYSTEMS REVIEW: Neurologic: No reported loss of consciousness, seizure activity, or focal weakness. Cardiac: Negative chest pain or palpitations. Respiratory: Negative cough or sputum production. Gastrointestinal: Negative vomiting or diarrhea. Genitourinary: Positive urinary tract infection. LABORATORY DATA: White blood cell count on admission 12.5, presently 9.7, hematocrit 28.8, platelets 173, creatinine 1.0. AST 38, ALT 24, alkaline phosphatase 137. Urinalysis; 990 white cells. Toxicology screen negative. Cultures are pending. PHYSICAL EXAMINATION: General: He is awake. He is somewhat cachectic appearing. Vital Signs: Temperature 98.2, blood pressure 127/63, pulse 82 regular, respirations 18 per minute. HEENT: Sclerae anicteric. Heart: Sounds S1, S2. Lungs: Clear. No rhonchi, rales, or wheezing. Abdomen: Soft. No tenderness elicited. Extremities: Negative for edema. There are ecchymotic areas noted on the upper and lower extremities bilaterally. There is an area of healed abrasion with surrounding erythema involving the right pretibial area. The right 2nd toe is swollen and red with dry ulcerations over the right 2nd and 3rd toes. There are ulcerations present over the left 2nd, 3rd, 4th, and 5th toes. No purulent drainage. IMPRESSION: 1. Cellulitis of the right lower extremity and right foot. 2. Rule out sepsis secondary to skin source. 3. Urinary tract infection. 4. History of major PENICILLIN allergy. PLAN: Await sepsis workup. Empiric antibiotic coverage in this patient with PENICILLIN allergy with vancomycin and Azactam. Local wound care. We will follow. Thank you for the kind referral ARLIN SALAZAR M.D. [id number]
[2019-12-17] MEDS: VANCOMYCIN 1 GRAM (PRE-DOCKED) 1,000 MG/250 ML BAG IVPB SCH (13:15)
[2019-12-17] MEDS ORDERED: LACTULOSE 20 GM/30 ML UDC (FOR ORAL USE ONLY) PO ONE (16:50)
--- NOTE | 2019-12-17 17:25 | PN ---
Physical Exam: SUBJECTIVE: Patient seen and examined in bed. He was admitted overnight s/p being found on floor of home by [employer]. Pt states he did not fall and is unsure why he was on the floor. This AM he offers no complaints. OBJECTIVE: Vital Signs Temp Pulse Resp BP Pulse Ox 99.0 F 74 17 128/66 98 12/17/19 18:00 12/17/19 18:00 12/17/19 18:00 12/17/19 18:00 12/17/19 21:00 GENERAL: AOx3, in no acute distress. HEAD: NCAT EYES: EBONI, EOMI, conjunctiva clear. ENT: Ears normal, nares patent, oropharynx clear without exudates. Moist mucous membranes. NECK: Normal range of motion, supple without lymphadenopathy, JVD, or masses. LUNGS: CTAB. No wheezes, and no crackles. No accessory muscle use. HEART: RRR s1 s2 ABDOMEN: Soft, BS present in all 4 quadrants, non-distended, no JVD, MUSCULOSKELETAL: No bony deformities or tenderness. No CVA tenderness. UPPER EXTREMITIES: 2+ pulses, warm, well-perfused. No cyanosis. No clubbing. No peripheral edema. LOWER EXTREMITIES: 2+ pulses, warm, well-perfused. No calf tenderness. No peripheral edema. NEUROLOGICAL: Cranial nerves II-XII intact. 4/5 muscle strength on the bilateral lower extremities. 5/5 on the upper extremities. Sensation intact to gross touch throughout. Dysmetria on FTN R>L. PSYCHIATRIC: Somewhat cooperative. Tangential and pressured speech. Non-violent and non-frightening delusional thought. SKIN: Diffuse bruises over entirety of body. BL valerio eschars, erythematous, non- purulent. Extensor surface lesion on LE digits. Laboratory Results - last 24 hr 12/16/19 12/16/19 12/16/19 14:30 14:30 18:55 WBC RBC Hgb Hct MCV MCH MCHC RDW Plt Count MPV Absolute Neuts (auto) Neutrophils % Lymphocytes % Monocytes % Eosinophils % Basophils % Nucleated RBC % Sodium Potassium Chloride Carbon Dioxide Anion Gap BUN Creatinine Est GFR (CKD-EPI)AfAm Est GFR (CKD-EPI)NonAf Random Glucose Calcium Phosphorus Magnesium Total Bilirubin Direct Bilirubin AST ALT Alkaline Phosphatase Ammonia Creatine Kinase Creatine Kinase Index 2.7 CK-MB (CK-2) 9.6 H Total Protein Albumin Vitamin B12 Serum Folate Urine Color Yellow Urine Appearance Turbid Urine pH 6.0 Ur Specific [place] 1.022 Urine Protein 100 Urine Glucose (UA) Negative Urine Ketones Trace H Urine Blood Moderate Urine Nitrite Psitive Urine Bilirubin Negative Urine Urobilinogen 0.2 Ur Leukocyte Esterase Large Urine WBC (Auto) 77548 Urine RBC (Auto) 141.8 Urine Casts (Auto) 1068.86 U Pathogenic Cast Auto Negative U Epithel Cells (Auto) 87.2 Urine Bacteria (Auto) 2009.7 Ur Random Creatinine Ur Random Sodium Ur Random Potassium Ur Random Chloride Salicylates Opiates Screen Methadone Screen Acetaminophen Barbiturate Screen Phencyclidine Screen Ur Amphetamines Screen MDMA (Ecstasy) Screen Benzodiazepines Screen Cocaine Screen U Marijuana (THC) Screen Alcohol, Quantitative < 3 12/16/19 12/16/19 12/16/19 18:55 20:17 20:17 WBC RBC Hgb Hct MCV MCH MCHC RDW Plt Count MPV Absolute Neuts (auto) Neutrophils % Lymphocytes % Monocytes % Eosinophils % Basophils % Nucleated RBC % Sodium Potassium Chloride Carbon Dioxide Anion Gap BUN Creatinine Est GFR (CKD-EPI)AfAm Est GFR (CKD-EPI)NonAf Random Glucose Calcium Phosphorus Magnesium Total Bilirubin Direct Bilirubin AST ALT Alkaline Phosphatase Ammonia Creatine Kinase Creatine Kinase Index CK-MB (CK-2) Total Protein Albumin Vitamin B12 Serum Folate Urine Color Urine Appearance Urine pH Ur Specific [place] Urine Protein Urine Glucose (UA) Urine Ketones Urine Blood Urine Nitrite Urine Bilirubin Urine Urobilinogen Ur Leukocyte Esterase Urine WBC (Auto) Urine RBC (Auto) Urine Casts (Auto) U Pathogenic Cast Auto U Epithel Cells (Auto) Urine Bacteria (Auto) Ur Random Creatinine Ur Random Sodium Ur Random Potassium Ur Random Chloride Salicylates < 1.7 L Opiates Screen Negative Methadone Screen Negative Acetaminophen <2.0 Barbiturate Screen Negative Phencyclidine Screen Negative Ur Amphetamines Screen Negative MDMA (Ecstasy) Screen Negative Benzodiazepines Screen Negative Cocaine Screen Negative U Marijuana (THC) Screen Negative Alcohol, Quantitative 12/17/19 12/17/19 12/17/19 01:50 01:50 06:04 WBC RBC Hgb Hct MCV MCH MCHC RDW Plt Count MPV Absolute Neuts (auto) Neutrophils % Lymphocytes % Monocytes % Eosinophils % Basophils % Nucleated RBC % Sodium Potassium Chloride Carbon Dioxide Anion Gap BUN Creatinine Est GFR (CKD-EPI)AfAm Est GFR (CKD-EPI)NonAf Random Glucose Calcium Phosphorus Magnesium Total Bilirubin Direct Bilirubin AST ALT Alkaline Phosphatase Ammonia 65.20 H Creatine Kinase Creatine Kinase Index CK-MB (CK-2) Total Protein Albumin Vitamin B12 Serum Folate Urine Color Yellow Urine Appearance Turbid Urine pH 6.5 Ur Specific [place] 1.043 H Urine Protein Trace Urine Glucose (UA) Negative Urine Ketones Trace H Urine Blood 1+ H Urine Nitrite Positive H Urine Bilirubin Negative Urine Urobilinogen 0.2 Ur Leukocyte Esterase 3+ H Urine WBC (Auto) 990 Urine RBC (Auto) Urine Casts (Auto) 6 U Pathogenic Cast Auto U Epithel Cells (Auto) 7.1 Urine Bacteria (Auto) 1723.5 Ur Random Creatinine 82.0 Ur Random Sodium 50 Ur Random Potassium 27.0 Ur Random Chloride 50 L Salicylates Opiates Screen Methadone Screen Acetaminophen Barbiturate Screen Phencyclidine Screen Ur Amphetamines Screen MDMA (Ecstasy) Screen Benzodiazepines Screen Cocaine Screen U Marijuana (THC) Screen Alcohol, Quantitative 12/17/19 12/17/19 12/17/19 06:04 06:04 06:04 WBC 9.7 RBC 2.90 L Hgb 9.8 L Hct 28.8 L MCV 99.5 H MCH 33.8 H MCHC 34.0 RDW 16.2 H Plt Count 173 MPV 8.2 Absolute Neuts (auto) 7.8 Neutrophils % 80.7 Lymphocytes % 9.9 D Monocytes % 6.7 Eosinophils % 2.6 D Basophils % 0.1 Nucleated RBC % 0 Sodium 146 H Potassium 3.4 L Chloride 112 H Carbon Dioxide 27 Anion Gap 7 L BUN 15.5 Creatinine 1.0 Est GFR (CKD-EPI)AfAm 88.61 Est GFR (CKD-EPI)NonAf 76.45 Random Glucose 91 Calcium 8.9 Phosphorus 3.0 Magnesium 2.2 Total Bilirubin 1.0 Direct Bilirubin 0.5 H AST 38 H ALT 24 Alkaline Phosphatase 137 H Ammonia Creatine Kinase 136 Creatine Kinase Index CK-MB (CK-2) Total Protein 6.2 L Albumin 2.4 L Vitamin B12 1916 H Serum Folate 23 H Urine Color Urine Appearance Urine pH Ur Specific [place] Urine Protein Urine Glucose (UA) Urine Ketones Urine Blood Urine Nitrite Urine Bilirubin Urine Urobilinogen Ur Leukocyte Esterase Urine WBC (Auto) Urine RBC (Auto) Urine Casts (Auto) U Pathogenic Cast Auto U Epithel Cells (Auto) Urine Bacteria (Auto) Ur Random Creatinine Ur Random Sodium Ur Random Potassium Ur Random Chloride Salicylates Opiates Screen Methadone Screen Acetaminophen Barbiturate Screen Phencyclidine Screen Ur Amphetamines Screen MDMA (Ecstasy) Screen Benzodiazepines Screen Cocaine Screen U Marijuana (THC) Screen Alcohol, Quantitative Active Medications Bupropion HCl (Wellbutrin Xl -) 150 mg PO DAILY [facility] Last Admin: 12/17/19 11:23 Dose: 150 mg Docusate Sodium (Colace -) 100 mg PO BID [facility] Last Admin: 12/17/19 21:32 Dose: Not Given Folic Acid (Folic Acid -) 1 mg PO DAILY [facility] Last Admin: 12/17/19 11:23 Dose: 1 mg Gabapentin (Neurontin -) 400 mg PO DAILY [facility] Last Admin: 12/17/19 11:22 Dose: 400 mg Heparin Sodium (Porcine) (Heparin -) 5,000 unit SQ TID [facility] Last Admin: 12/17/19 21:32 Dose: 5,000 unit Lactated Ringer's (Lactated Ringers Solution) 1,000 ml in 1,000 mls @ 75 mls/ hr IV ASDIR [facility] Last Admin: 12/17/19 21:33 Dose: 75 mls/hr Vancomycin HCl (Vancomycin (Pre-Docked)) 1,000 mg in 250 mls @ 166.667 mls/hr IVPB Q12H [facility]; Protocol Last Admin: 12/17/19 13:15 Dose: 166.667 mls/hr Aztreonam 1 gm/ Dextrose 50 mls @ 100 mls/hr IVPB Q8H-IV [facility]; Protocol Last Admin: 12/17/19 18:45 Dose: 100 mls/hr Magnesium Oxide (Mag-Ox -) 400 mg PO DAILY [facility] Last Admin: 12/17/19 11:22 Dose: 400 mg Mirtazapine (Remeron -) 30 mg PO HS [facility] Last Admin: 12/17/19 21:33 Dose: 30 mg Multivitamins/Minerals/Vitamin C (Tab-A-Vit -) 1 tab PO DAILY [facility] Last Admin: 12/17/19 11:22 Dose: 1 tab Propranolol HCl (Inderal -) 10 mg PO DAILY [facility] Last Admin: 12/17/19 11:23 Dose: 10 mg Quetiapine Fumarate (Seroquel -) 100 mg PO [facility] Last Admin: 12/17/19 21:33 Dose: 100 mg Thiamine HCl (Vitamin B1 -) 100 mg PO DAILY [facility] Last Admin: 12/17/19 11:23 Dose: 100 mg ASSESSMENT/PLAN: 69 y/o male PMH HTN, genetic cerebellar ataxia, insomnia, depression, bipolar disorder, schizoaffective disorder admitted for poor ability to ambulate likely secondary to cerebellar ataxia and UTI. # Difficulty ambulating - Normally walks with walker but attempts walking freely and often falls - Collaborated history with Dr. Henry of [facility] ([employer] [facility]) who strongly believes etoh abuse is primary factor in current presentation - U tox neg, high b12/folate - Cerebellar ataxia (age 3) - PT - Fall precautions # UTI - PNC allergy - Aztreonam # RIGHT LE extensor surface cellulitis, distal LE cellulitis - ID consulted - Vancomycin and aztreonam #MARKO - Poss 2/2 dehydration - IVF # Macrocytic anemia - H/H 9.8/28.8 - MCV 99.5 - High b12 (1916)/folate (23) - Given h/o etoh abuse, thiamine, MVI, folic acid # Schizoaffective disorder/bipolar depression - Continue current home regimen: seroquel (reduced the dose of seroquel to 100mg due to Qtc prolongation of 520), buproprion 150 mg po qd, mirtazapine 30 mg po qd - Consult psych # F/E/N - NS - Cont. to monitor - Low sodium diet # DVT prophylaxis - Heparin SQ # Disposition - Med/surg Sumit Lebron MD Visit type - Emergency Visit Emergency Visit: No - New Patient This patient is new to me today: Yes Date on this admission: 12/17/19 - Critical Care Critical Care patient: No ATTENDING PHYSICIAN STATEMENT I saw and evaluated the patient. I reviewed the resident's note and discussed the case with the resident. I agree with the resident's findings and plan as documented. SUBJECTIVE: OBJECTIVE: ASSESSMENT AND PLAN:
--- NOTE | 2019-12-17 18:17 | PN ---
Teaching Attending Note Name of Resident: Sumit Lebron ATTENDING PHYSICIAN STATEMENT I saw and evaluated the patient. I reviewed the resident's note and discussed the case with the resident. I agree with the resident's findings and plan as documented. SUBJECTIVE: Patient was admitted overnight , was found on the floor of his home by his home health care. denies any fever or chills. OBJECTIVE: Vital Signs Temperature 99.0 F 12/17/19 18:00 Pulse Rate 74 12/17/19 18:00 Respiratory Rate 17 12/17/19 18:00 Blood Pressure 128/66 12/17/19 18:00 O2 Sat by Pulse Oximetry (%) 98 12/17/19 16:15 GENERAL: The patient is awake, alert, and fully oriented, in no acute distress. HEAD: Normal with no signs of trauma. EYES: PERRL, extraocular movements intact, sclera anicteric, conjunctiva clear. ENT: Ears normal, oropharynx clear without exudates, moist mucous membranes. NECK: Trachea midline, full range of motion, supple. LUNGS: Breath sounds equal, clear to auscultation bilaterally, no wheezes, no crackles, no accessory muscle use. HEART: Regular rate and rhythm, S1, S2 without murmur, rub or gallop. ABDOMEN: Soft, NT,ND, normoactive bowel sounds, no guarding, no rebound, no hepatosplenomegaly, no masses. EXTREMITIES: 2+ pulses, warm, well-perfused, positive cellulitis of right chin . NEUROLOGICAL: Cranial nerves II through XII grossly intact. Normal speech, gait not observed. PSYCH: Normal mood, normal affect. SKIN: Warm, dry, normal turgor, multiple lower extremity bruises from falls CBCD WBC 9.7 K/mm3 (4.0-10.0) 12/17/19 06:04 RBC 2.90 M/mm3 (4.00-5.60) L 12/17/19 06:04 Hgb 9.8 GM/dL (11.7-16.9) L 12/17/19 06:04 Hct 28.8 % (35.4-49) L 12/17/19 06:04 MCV 99.5 fl (80-96) H 12/17/19 06:04 MCHC 34.0 g/dl (32.0-35.9) 12/17/19 06:04 RDW 16.2 % (11.9-15.9) H 12/17/19 06:04 Plt Count 173 K/MM3 (134-434) 12/17/19 06:04 MPV 8.2 fl (7.5-11.1) 12/17/19 06:04 CMP Sodium 146 mmol/L (136-145) H 12/17/19 06:04 Potassium 3.4 mmol/L (3.5-5.1) L 12/17/19 06:04 Chloride 112 mmol/L (98-107) H 12/17/19 06:04 Carbon Dioxide 27 mmol/L (21-32) 12/17/19 06:04 Anion Gap 7 MMOL/L (8-16) L 12/17/19 06:04 BUN 15.5 mg/dL (7-18) 12/17/19 06:04 Creatinine 1.0 mg/dL (0.55-1.3) 12/17/19 06:04 Random Glucose 91 mg/dL (74-106) 12/17/19 06:04 Calcium 8.9 mg/dL (8.5-10.1) 12/17/19 06:04 Total Bilirubin 1.0 mg/dL (0.2-1) 12/17/19 06:04 AST 38 U/L (15-37) H 12/17/19 06:04 ALT 24 U/L (13-61) 12/17/19 06:04 Alkaline Phosphatase 137 U/L (45-117) H 12/17/19 06:04 Total Protein 6.2 g/dl (6.4-8.2) L 12/17/19 06:04 Albumin 2.4 g/dl (3.4-5.0) L 12/17/19 06:04 CARDIAC ENZYMES Creatine Kinase 136 U/L (26-308) 12/17/19 06:04 Troponin I < 0.02 ng/ml (0.00-0.05) 12/16/19 14:30 Current Medications Generic Name Dose Route Start Last Admin Trade Name Freq PRN Reason Stop Dose Admin Bupropion HCl 150 mg 12/17/19 10:00 12/17/19 11:23 Wellbutrin Xl - PO 150 mg DAILY [facility] Administration Docusate Sodium 100 mg 12/17/19 10:00 12/17/19 11:21 Colace - PO 100 mg BID [facility] Administration Folic Acid 1 mg 12/17/19 10:00 12/17/19 11:23 Folic Acid - PO 1 mg DAILY [facility] Administration Gabapentin 400 mg 12/17/19 10:00 12/17/19 11:22 Neurontin - PO 400 mg DAILY [facility] Administration Heparin Sodium (Porcine) 5,000 unit 12/17/19 06:00 12/17/19 14:19 Heparin - SQ 5,000 unit TID [facility] Administration Lactated Ringer's 1,000 ml in 1,000 mls @ 75 mls/hr 12/16/19 23:45 12/17/19 01:11 Lactated Ringers Solution IV 75 mls/hr ASDIR [facility] Administration Vancomycin HCl 1,000 mg in 250 mls @ 166.667 mls/hr 12/17/19 13:00 12/17/19 13:15 Vancomycin (Pre-Docked) IVPB 166.667 mls/hr Q12H [facility] Administration Protocol Aztreonam 1 gm/ Dextrose 50 mls @ 100 mls/hr 12/17/19 18:00 IVPB Q8H-IV [facility] Protocol Magnesium Oxide 400 mg 12/17/19 10:00 12/17/19 11:22 Mag-Ox - PO 400 mg DAILY [facility] Administration Mirtazapine 30 mg 12/17/19 22:00 Remeron - PO [facility] Multivitamins/Minerals/Vitamin C 1 tab 12/17/19 10:00 12/17/19 11:22 Tab-A-Vit - PO 1 tab DAILY [facility] Administration Propranolol HCl 10 mg 12/17/19 10:00 12/17/19 11:23 Inderal - PO 10 mg DAILY [facility] Administration Quetiapine Fumarate 200 mg 12/17/19 22:00 Seroquel - PO HS [facility] Thiamine HCl 100 mg 12/17/19 10:00 12/17/19 11:23 Vitamin B1 - PO 100 mg DAILY [facility] Administration Home Medications Medication Instructions Recorded Bupropion HCl [Bupropion Xl] 150 mg PO DAILY 12/16/19 Docusate Sodium [Docusate 100 mg] 100 mg PO BID 12/16/19 Gabapentin 400 mg PO TID 12/16/19 Magnesium Oxide [Mag-Ox -] 400 mg PO BID 12/16/19 Mirtazapine 30 mg PO DAILY 12/16/19 Propranolol HCl 10 mg PO BID 12/16/19 Quetiapine Fumarate [Seroquel -] 200 mg PO HS 12/16/19 Cholecalciferol (Vitamin D3) 2,000 unit PO DAILY 12/17/19 [Vitamin D3] Docusate Sodium [Colace] 200 mg PO HS 12/17/19 Doxepin HCl 50 mg PO HS 12/17/19 Polyethylene Glycol 3350 [Miralax 17 gm PO ASDIR 12/17/19 (For Daily Use) -] Quetiapine Fumarate [Seroquel -] 100 mg PO AM 12/17/19 Quetiapine Fumarate [Seroquel -] 150 mg PO HS 12/17/19 Urine Test Results Urine Color Yellow 12/17/19 01:50 Urine Appearance Turbid 12/17/19 01:50 Urine pH 6.5 (5.0-8.0) 12/17/19 01:50 Ur Specific [place] 1.043 (1.010-1.035) H 12/17/19 01:50 Urine Protein Trace (NEGATIVE) 12/17/19 01:50 Urine Glucose (UA) Negative (NEGATIVE) 12/17/19 01:50 Urine Ketones Trace (NEGATIVE) H 12/17/19 01:50 Urine Blood 1+ (NEGATIVE) H 12/17/19 01:50 Urine Nitrite Positive (NEGATIVE) H 12/17/19 01:50 Urine Bilirubin Negative (NEGATIVE) 12/17/19 01:50 Ur Leukocyte Esterase 3+ (NEGATIVE) H 12/17/19 01:50 Urine Test Results Urine Color Yellow 12/17/19 01:50 Urine Appearance Turbid 12/17/19 01:50 Urine pH 6.5 (5.0-8.0) 12/17/19 01:50 Ur Specific [place] 1.043 (1.010-1.035) H 12/17/19 01:50 Urine Protein Trace (NEGATIVE) 12/17/19 01:50 Urine Glucose (UA) Negative (NEGATIVE) 12/17/19 01:50 Urine Ketones Trace (NEGATIVE) H 12/17/19 01:50 Urine Blood 1+ (NEGATIVE) H 12/17/19 01:50 Urine Nitrite Positive (NEGATIVE) H 12/17/19 01:50 Urine Bilirubin Negative (NEGATIVE) 12/17/19 01:50 Ur Leukocyte Esterase 3+ (NEGATIVE) H 12/17/19 01:50 EKG--> 1st degree AV block, left axis deviation, QRS widening and LVH, no ST segment changes, QTc 520 ASSESSMENT/PLAN: Patient is a 69yom with PMHx of genetic cerebellar ataxia, insomnia, depression , HTN, bipolar disorder, schizoaffective disorder admitted for s/p fall with difficulty to ambulate with RLE cellultis and was found to have UTI. # Acute UTI on azactam IV since allergic to pcn #R valerio cellulitis with 2nd toe cellulitis: ON VAnco as per ID #MARKO O iv hYDration #macrocytic Anemia( iron studies, B12/folate) follow #Hx of Etoh Dependency : On thiamine, MVI, folic acid # Hepatic cirrhosis: likely from alcohol abuse, hepatic panel ordered, RUQ U/ S, ammonia level #HTN: on propranolol #Schizoaffective Disorder/Bipolar - continue home seroquel(reduced the dose of seroquel to 100mg due to Qtc prolongation of 520), wellbutrin, mirtazapine, # QTc prolonged 520 due to the meds: reduced Seroquel to 100mg from 200mg, pscy consult dr claire for further medication adjustment #Poor Ability to Ambulate with hx of of cerebellar ataxia (age 3 ) DVT PPx: heparin 5000
[2019-12-17] MEDS: AZTREONAM 1 GM in DEXTROSE 5%-WATER - 50 ML IVPB SCH (18:45)
[2019-12-17] MEDS ORDERED: DOCUSATE SODIUM 100 MG CAPSULE (FP) PO ONE (20:26)
[2019-12-17] MEDS ORDERED: MIRTAZAPINE 15 MG TABLET (FP) ONE (20:26)
[2019-12-17] MEDS ORDERED: MIRTAZAPINE 30 MG TABLET (FP) PO SCH (22:00)
[2019-12-17] MEDS ORDERED: QUEtiapine FUMARATE 200 MG TABLET PO SCH (22:00)
[2019-12-17] MEDS ORDERED: QUEtiapine FUMARATE 100 MG TABLET (FP) PO SCH (22:00)
[2019-12-18] MEDS ORDERED: AZTREONAM 1 GM VIAL (RESTRICTED TO ID) ONE ×3 (00:49→16:43)
[2019-12-18] MEDS ORDERED: DEXTROSE 5%-WATER - 50 ML IVPB ONE ×3 (00:50→16:43)
[2019-12-18] MEDS: VANCOMYCIN 1 GRAM (PRE-DOCKED) 1,000 MG/250 ML BAG IVPB SCH ×2 (01:05→12:06)
[2019-12-18] MEDS: AZTREONAM 1 GM in DEXTROSE 5%-WATER - 50 ML IVPB SCH ×3 (01:05→17:07)
[2019-12-18] MEDS: LACTATED RINGERS SOLUTION 1,000 ML/1,000 ML INFUS.BAG IV SCH ×2 (01:05→17:07)
[2019-12-18] MEDS ORDERED: ACETAMINOPHEN 325 MG TABLET (FP) PO ONE (01:30)
[2019-12-18] MEDS ORDERED: MELATONIN 5 MG TABLETS PO ONE (01:31)
[2019-12-18 02:51] VITALS: BMI 20.6
[2019-12-18] MEDS: HEPARIN NA (PORCINE) 5,000 UNITS/ML 1ML VIAL SQ SCH ×3 (06:10→21:13)
[2019-12-18 07:43] LABS: HEMATOCRIT 24.5 % (35.4-49); HEMOGLOBIN 8.4 GM/dL (11.7-16.9); MCH 34.4 pg (25.7-33.7); MCHC 34.4 g/dl (32.0-35.9); MEAN PLT VOLUME 7.9 fl (7.5-11.1); PLATELET COUNT 157 K/MM3 (134-434); RBC 2.45 M/mm3 (4.00-5.60); RDW 16.6 % (11.9-15.9); WHITE BLOOD COUNT 7.9 K/mm3 (4.0-10.0)
[2019-12-18 08:12] LABS: CALCIUM 8.5 mg/dL (8.5-10.1); CREATININE 0.9 mg/dL (0.55-1.3); POTASSIUM 3.1 mmol/L (3.5-5.1); TOT PROT 5.5 g/dl (6.4-8.2)
[2019-12-18] MEDS ORDERED: POTASSIUM CHLORIDE TABS 20 MEQ TABLET.ER (FP) PO ONE (08:22)
--- NOTE | 2019-12-18 09:16 | PN ---
Teaching Attending Note Name of Resident: Sumit Lebron ATTENDING PHYSICIAN STATEMENT I saw and evaluated the patient. I reviewed the resident's note and discussed the case with the resident. I agree with the resident's findings and plan as documented. SUBJECTIVE: Patient is feeling better with no acute distress. Vital Signs Temperature 98.4 F 12/18/19 08:36 Pulse Rate 79 12/18/19 08:36 Respiratory Rate 18 12/18/19 08:36 Blood Pressure 118/67 12/18/19 08:36 O2 Sat by Pulse Oximetry (%) 98 12/18/19 02:20 GENERAL: The patient is awake, alert, and fully oriented, in no acute distress. HEAD: Normal with no signs of trauma. EYES: PERRL, extraocular movements intact, sclera anicteric, conjunctiva clear. ENT: Ears normal, oropharynx clear without exudates, moist mucous membranes. NECK: Trachea midline, full range of motion, supple. LUNGS: Breath sounds equal, clear to auscultation bilaterally, no wheezes, no crackles, no accessory muscle use. HEART: Regular rate and rhythm, S1, S2 without murmur, rub or gallop. ABDOMEN: Soft, NT,ND, normoactive bowel sounds, no guarding, no rebound, no hepatosplenomegaly, no masses. EXTREMITIES: 2+ pulses, warm, well-perfused, positive cellulitis of right chin improving . NEUROLOGICAL: Cranial nerves II through XII grossly intact. Normal speech, gait not observed. PSYCH: Normal mood, normal affect. SKIN: Warm, dry, normal turgor, multiple lower extremity bruises from falls CBCD WBC 7.9 K/mm3 (4.0-10.0) 12/18/19 06:33 RBC 2.45 M/mm3 (4.00-5.60) L 12/18/19 06:33 Hgb 8.4 GM/dL (11.7-16.9) L 12/18/19 06:33 Hct 24.5 % (35.4-49) L 12/18/19 06:33 MCV 100.0 fl (80-96) H 12/18/19 06:33 MCHC 34.4 g/dl (32.0-35.9) 12/18/19 06:33 RDW 16.6 % (11.9-15.9) H 12/18/19 06:33 Plt Count 157 K/MM3 (134-434) 12/18/19 06:33 MPV 7.9 fl (7.5-11.1) 12/18/19 06:33 CMP Sodium 145 mmol/L (136-145) 12/18/19 06:33 Potassium 3.1 mmol/L (3.5-5.1) L 12/18/19 06:33 Chloride 114 mmol/L (98-107) H 12/18/19 06:33 Carbon Dioxide 26 mmol/L (21-32) 12/18/19 06:33 Anion Gap 6 MMOL/L (8-16) L 12/18/19 06:33 BUN 14.0 mg/dL (7-18) 12/18/19 06:33 Creatinine 0.9 mg/dL (0.55-1.3) 12/18/19 06:33 Random Glucose 85 mg/dL (74-106) 12/18/19 06:33 Calcium 8.5 mg/dL (8.5-10.1) 12/18/19 06:33 Total Bilirubin 1.0 mg/dL (0.2-1) 12/18/19 06:33 AST 43 U/L (15-37) H 12/18/19 06:33 ALT 22 U/L (13-61) 12/18/19 06:33 Alkaline Phosphatase 118 U/L (45-117) H 12/18/19 06:33 Total Protein 5.5 g/dl (6.4-8.2) L 12/18/19 06:33 Albumin 2.0 g/dl (3.4-5.0) L 12/18/19 06:33 CARDIAC ENZYMES Creatine Kinase 136 U/L (26-308) 12/17/19 06:04 Troponin I < 0.02 ng/ml (0.00-0.05) 12/16/19 14:30 Home Medications Medication Instructions Recorded Bupropion HCl [Bupropion Xl] 150 mg PO DAILY 12/16/19 Docusate Sodium [Docusate 100 mg] 100 mg PO BID 12/16/19 Gabapentin 400 mg PO TID 12/16/19 Magnesium Oxide [Mag-Ox -] 400 mg PO BID 12/16/19 Mirtazapine 30 mg PO DAILY 12/16/19 Propranolol HCl 10 mg PO BID 12/16/19 Quetiapine Fumarate [Seroquel -] 200 mg PO HS 12/16/19 Cholecalciferol (Vitamin D3) 2,000 unit PO DAILY 12/17/19 [Vitamin D3] Docusate Sodium [Colace] 200 mg PO HS 12/17/19 Doxepin HCl 50 mg PO HS 12/17/19 Polyethylene Glycol 3350 [Miralax 17 gm PO ASDIR 12/17/19 (For Daily Use) -] Quetiapine Fumarate [Seroquel -] 100 mg PO AM 12/17/19 Quetiapine Fumarate [Seroquel -] 150 mg PO HS 12/17/19 Urine Test Results Urine Color Yellow 12/17/19 01:50 Urine Appearance Turbid 12/17/19 01:50 Urine pH 6.5 (5.0-8.0) 12/17/19 01:50 Ur Specific Maxie 1.043 (1.010-1.035) H 12/17/19 01:50 Urine Protein Trace (NEGATIVE) 12/17/19 01:50 Urine Glucose (UA) Negative (NEGATIVE) 12/17/19 01:50 Urine Ketones Trace (NEGATIVE) H 12/17/19 01:50 Urine Blood 1+ (NEGATIVE) H 12/17/19 01:50 Urine Nitrite Positive (NEGATIVE) H 12/17/19 01:50 Urine Bilirubin Negative (NEGATIVE) 12/17/19 01:50 Ur Leukocyte Esterase 3+ (NEGATIVE) H 12/17/19 01:50 Current Medications Generic Name Dose Route Start Last Admin Trade Name Kartikq PRN Reason Stop Dose Admin Bupropion HCl 150 mg 12/17/19 10:00 12/17/19 11:23 Wellbutrin Xl - PO 150 mg DAILY ALEXIA Administration Docusate Sodium 100 mg 12/17/19 10:00 12/17/19 21:32 Colace - PO Not Given BID ALEXIA Folic Acid 1 mg 12/17/19 10:00 12/17/19 11:23 Folic Acid - PO 1 mg DAILY ALEXIA Administration Gabapentin 400 mg 12/17/19 10:00 12/17/19 11:22 Neurontin - PO 400 mg DAILY ALEXIA Administration Heparin Sodium (Porcine) 5,000 unit 12/17/19 06:00 12/18/19 06:10 Heparin - SQ 5,000 unit TID ALEXIA Administration Lactated Ringer's 1,000 ml in 1,000 mls @ 75 mls/hr 12/16/19 23:45 12/18/19 01:05 Lactated Ringers Solution IV 75 mls/hr ASDIR ALEXIA Administration Vancomycin HCl 1,000 mg in 250 mls @ 166.667 mls/hr 12/17/19 13:00 12/18/19 01:05 Vancomycin (Pre-Docked) IVPB 166.667 mls/hr Q12H ALEXIA Administration Protocol Aztreonam 1 gm/ Dextrose 50 mls @ 100 mls/hr 12/17/19 18:00 12/18/19 01:05 IVPB 100 mls/hr Q8H-IV ALEXIA Administration Protocol Magnesium Oxide 400 mg 12/17/19 10:00 12/17/19 11:22 Mag-Ox - PO 400 mg DAILY ALEXIA Administration Mirtazapine 30 mg 12/17/19 22:00 12/17/19 21:33 Remeron - PO 30 mg HS ALEXIA Administration Multivitamins/Minerals/Vitamin C 1 tab 12/17/19 10:00 12/17/19 11:22 Tab-A-Vit - PO 1 tab DAILY ALEXIA Administration Propranolol HCl 10 mg 12/17/19 10:00 12/17/19 11:23 Inderal - PO 10 mg DAILY ALEXIA Administration Quetiapine Fumarate 100 mg 12/17/19 22:00 12/17/19 21:33 Seroquel - PO 100 mg HS ALEXIA Administration Thiamine HCl 100 mg 12/17/19 10:00 12/17/19 11:23 Vitamin B1 - PO 100 mg DAILY ALEXIA Administration Laboratory Tests 12/17/19 12/17/19 12/18/19 06:04 06:04 MCV 100 Ammonia 65.20 H Vitamin B12 1916 H Serum Folate 23 H Microbiology 12/16/19 18:55 Urine - Urine Clean Catch Urine Culture - Final Mr S Aureus 12/18/19 06:15 Blood - Peripheral Venous Blood Culture - Preliminary NO GROWTH OBTAINED AFTER 24 HOURS, INCUBATION TO CONTINUE FOR 4 DAYS. 12/18/19 06:00 Blood - Peripheral Venous Blood Culture - Preliminary NO GROWTH OBTAINED AFTER 24 HOURS, INCUBATION TO CONTINUE FOR 4 DAYS. EKG--> 1st degree AV block, left axis deviation, QRS widening and LVH, no ST segment changes, QTc 520 ASSESSMENT/PLAN: Patient is a 69yom with PMHx of genetic cerebellar ataxia, insomnia, depression , HTN, bipolar disorder, schizoaffective disorder admitted for s/p fall with difficulty to ambulate with RLE cellultis and was found to have UTI. # Acute MRSA UTI on Vancomycin IV s/p azactam #R valerio cellulitis with 2nd toe cellulitis: ON VAnco as per ID, blood cx neg. #MARKO O iv hYDration #macrocytic Anemia with nl folic acid and B12. #Hx of Etoh Dependency : On thiamine, MVI, folic acid # Hepatic cirrhosis: likely from alcohol abuse, hepatic panel pending , RUQ U /S reviewed , ammonia level is elevated #HTN: on propranolol #Schizoaffective Disorder/Bipolar: as per psych to dc home seroquel, continue wellbutrin, mirtazapine, # QTc prolonged 520 due to the meds: discontinued seroquel for now. #Poor Ability to Ambulate with hx of of cerebellar ataxia (age 3 ) DVT PPx: heparin 5000
[2019-12-18] MEDS: THIAMINE HCL 100 MG TABLET (FP) PO SCH (09:30)
[2019-12-18] MEDS: DOCUSATE SODIUM 100 MG CAPSULE (FP) PO SCH ×3 (09:30→21:19)
[2019-12-18] MEDS: MULTIVITAMINS (DAILY MVI) TABLET (FP) PO SCH (09:30)
[2019-12-18] MEDS: GABAPENTIN 400 MG CAPSULE PO SCH (09:30)
[2019-12-18] MEDS: MAGNESIUM OXIDE 400 MG TABLET (FP) PO SCH (09:30)
[2019-12-18] MEDS: FOLIC ACID 1 MG TABLET (FP) PO SCH (09:31)
[2019-12-18] MEDS ORDERED: buPROPion HCL 100 MG TABLET PO ONE (11:13)
--- NOTE | 2019-12-18 11:21 | CON.PSY ---
Psychiatry Consult Chief Complaint: 69 yoanna old male with long History of Scizo affective, Deptressive disorder. History of Alcohol abuse admitted with infection. apparantly unable to care for himself. Lives in a very poor living conditions. Poor Historian and has Korsakoff phenomenon. Symptoms: reports: Memory Impairment, Irritability, Disorganized/Disruptive Thoughts - Previous Psychiatric Treatment Outpatient: Less than 6 mos ago Inpatient: One prior admission - Reason for Previous Treatment Reason for Previous Treatment: Major Depression, Biploar Illness, Alcohol Abuse - Current Medications Current Medications: Active Medications Bupropion HCl (Wellbutrin -) 100 mg PO DAILY ONE Stop: 12/18/19 11:14 Docusate Sodium (Colace -) 100 mg PO BID [facility] Last Admin: 12/18/19 09:30 Dose: 100 mg Folic Acid (Folic Acid -) 1 mg PO DAILY [facility] Last Admin: 12/18/19 09:31 Dose: 1 mg Gabapentin (Neurontin -) 400 mg PO DAILY [facility] Last Admin: 12/18/19 09:30 Dose: 400 mg Heparin Sodium (Porcine) (Heparin -) 5,000 unit SQ TID [facility] Last Admin: 12/18/19 06:10 Dose: 5,000 unit Lactated Ringer's (Lactated Ringers Solution) 1,000 ml in 1,000 mls @ 75 mls/ hr IV ASDIR ALEXIA Last Admin: 12/18/19 01:05 Dose: 75 mls/hr Vancomycin HCl (Vancomycin (Pre-Docked)) 1,000 mg in 250 mls @ 166.667 mls/hr IVPB Q12H ALEXIA; Protocol Last Admin: 12/18/19 01:05 Dose: 166.667 mls/hr Aztreonam 1 gm/ Dextrose 50 mls @ 100 mls/hr IVPB Q8H-IV ALEXIA; Protocol Last Admin: 12/18/19 09:31 Dose: 100 mls/hr Magnesium Oxide (Mag-Ox -) 400 mg PO DAILY [facility] Last Admin: 12/18/19 09:30 Dose: 400 mg Mirtazapine (Remeron -) 15 mg PO [facility] Multivitamins/Minerals/Vitamin C (Tab-A-Vit -) 1 tab PO DAILY [facility] Last Admin: 12/18/19 09:30 Dose: 1 tab Propranolol HCl (Inderal -) 10 mg PO DAILY [facility] Last Admin: 12/18/19 09:31 Dose: 10 mg Thiamine HCl (Vitamin B1 -) 100 mg PO DAILY [facility] Last Admin: 12/18/19 09:30 Dose: 100 mg - Allergies Allergies: Allergies Allergy/AdvReac Type Severity Reaction Status Date / Time Penicillins Allergy Verified 12/16/19 14:25 - Current Mental Status Evaluation Attitude: Guarded - Affect Affect: Constrictive Appropriateness: Not Appropriate - Mood Mood: Irritable - Speech/Language Expressive: Coherent - Psychomotor Activity Psychomotor Activity: Hyperactive - Thought Process Thought Process: Circumstantial - Thought Content Hallucinations: Absent Delusions: Absent - Self Perception Self Perception: No Impairment - Cognition Attention: Alert Memory, Short Term: 2/3 Memory, Remote with Promptin/3 - Concentration Serial Sevens Intact: No Simple Calculations Intact: No - Abstraction Proverb Interpretation: Lewis Judgement: Severely Impaired - Insight Insight: Impaired - Impulse Control Impulse Control: Good Control - Suicidal Ideation Suicidal Ideation: No - Homicidal Ideation Homicidal Ideation: No Assessment/Plan 1) d/c Seroquel. 2) reduce Remeron 15mg po hs. 3) reduce wellbutrin 100mg po od. 4) cardiology consult. 5) patient lacks capacity at this time.
--- NOTE | 2019-12-18 15:18 | PN ---
Progress Note, Physician History of Present Illness: OOB IN CHAIR C/O R LEG PAIN NO WOUND DRAINAGE REPORTED AFEBRILE WBC IMPROVED WNL - Current Medication List Current Medications: Active Medications Docusate Sodium (Colace -) 100 mg PO BID [facility] Last Admin: 12/18/19 09:30 Dose: 100 mg Folic Acid (Folic Acid -) 1 mg PO DAILY [facility] Last Admin: 12/18/19 09:31 Dose: 1 mg Gabapentin (Neurontin -) 400 mg PO DAILY [facility] Last Admin: 12/18/19 09:30 Dose: 400 mg Heparin Sodium (Porcine) (Heparin -) 5,000 unit SQ TID [facility] Last Admin: 12/18/19 13:07 Dose: 5,000 unit Lactated Ringer's (Lactated Ringers Solution) 1,000 ml in 1,000 mls @ 75 mls/ hr IV ASDIR [facility] Last Admin: 12/18/19 01:05 Dose: 75 mls/hr Vancomycin HCl (Vancomycin (Pre-Docked)) 1,000 mg in 250 mls @ 166.667 mls/hr IVPB Q12H [facility]; Protocol Last Admin: 12/18/19 12:06 Dose: 166.667 mls/hr Aztreonam 1 gm/ Dextrose 50 mls @ 100 mls/hr IVPB Q8H-IV [facility]; Protocol Last Admin: 12/18/19 09:31 Dose: 100 mls/hr Magnesium Oxide (Mag-Ox -) 400 mg PO DAILY [facility] Last Admin: 12/18/19 09:30 Dose: 400 mg Mirtazapine (Remeron -) 15 mg PO [facility] Multivitamins/Minerals/Vitamin C (Tab-A-Vit -) 1 tab PO DAILY [facility] Last Admin: 12/18/19 09:30 Dose: 1 tab Propranolol HCl (Inderal -) 10 mg PO DAILY [facility] Last Admin: 12/18/19 09:31 Dose: 10 mg Thiamine HCl (Vitamin B1 -) 100 mg PO DAILY [facility] Last Admin: 12/18/19 09:30 Dose: 100 mg - Objective Vital Signs: Vital Signs Temperature 98.5 F 12/18/19 14:05 Pulse Rate 75 12/18/19 14:05 Respiratory Rate 20 12/18/19 14:05 Blood Pressure 113/60 12/18/19 14:05 O2 Sat by Pulse Oximetry (%) 97 12/18/19 09:00 Constitutional: Yes: No Distress Eyes: Yes: Conjunctiva Clear Cardiovascular: Yes: Regular Rate and Rhythm, S1, S2 Respiratory: Yes: CTA Bilaterally Gastrointestinal: Yes: Normal Bowel Sounds, Soft. No: Tenderness Extremities: Yes: Other (+ ERYTHEMA/ WARMTH R PRETIBIAL AREA + DRY ABRASIONS LE) Labs: CBC, BMP 12/18/19 06:33 12/18/19 06:33 INR, PTT INR 1.15 (0.83-1.09) H 12/16/19 14:30 Assessment/Plan CELLULITIS R/O SEPSIS SECONDARY TO SKIN SOURCE ?UTI + URINE C/S MRSA R/O BACTEREMIA PCN ALLERGY CONTINUE VANCOMYCIN/ AZTREONAM AWAIT C/S
--- NOTE | 2019-12-18 15:22 | CONSULT ---
Consult Detox [facility] Reason for Current Admission/Consult: Patient drinks alcohol Referred by:: sandeep burleson - History History of Present Illness: Sourav Estrada is a 69 year old male with a past medical history of genetic cerebellar ataxia, insomnia, depression, HTN, bipolar disorder, schizoaffective disorder presenting after a counter caser checked in on the patient and was not able to get a response until he let her in after a half an hour of crawling on the floor. EMS was called and noted that the patient's apartment was in dissaray and there was urine and feces throughout the apartment and the patient was brought in for further evaluation. The social science instructor had expressed to the ED staff that they believed that the patient had been using alcohol. There was also concern for recurrent falls and injury as EMS and the social science instructor had noticed multiple bruises, maharaj, healing wounds throughout the patient's body. On interview the patient was not able to give a coherent story noting that he had fallen 2 weeks ago but was on the floor yesterday, went food shopping 2 days ago and went to a bar with his friends. Only endorsed hip pain at first but noted that he could move his legs well and denied hip pain later in the interview. Denied cp, sob, abd pain, n/v/c/d, dizziness, lightheadedness, fever , chills, visual changes, dysuria, hematuria, frequency, urgency, hesitancy. Endorsed that he does drink alcohol. Denied sick contacts or recent travel. ER course was notable for: (1) WBC 12.5 with left shift, BUn 19.4 CRE 1.4 (unknown baseline), bilirubin 1.3 , AST 54, ALT 30, ALk phos 162, CK 349, UA with nitrites, +LE, many bacteria and WBC, elevated epithelial cells. Repeat UA with less epithelial cells and continued signs of infection. (2) CXR with R atelectasis, with moderate atrophy, no acute lesions. - History Source History Provided By: Patient, Medical Record Limitations to Obtaining History: No Limitations - Alcohol/Substance Use Hx Alcohol Use: Yes (drinks but episodically once every 2 months) Hx Substance Use: No Hx Substance Use Treatment: No - Current Drug/Alcohol Use Alcohol Route: Oral Amount used: 1 pint of rum in mixed drinks every 2 months Age of first use: 20 Date of Last Use: 12/14/19 - Past Medical History Cardio/Vascular: Yes: HTN Psych: Yes: Bipolar, Other (schizoaffective disorder) Musculoskeletal: Yes: Other (congenital ataxia) - Past Surgical History Additional Surgical History: multiple bone fractures from falls secondary to his congenital ataxia - Significant Medical Findings: Patient seen in bed in no acute distress, alert and oriented x3 and answering appropriately and communicatively Cor: S1, S2 No murmurs appreciated Lungs: Clear to auscultation bilaterally Abd: Benign, good bowel sounds, non-tender and no guarding or rebound. Ext: FROM, good pulses. CIWA Score - CIWA Score Nausea/Vomitin-No Nausea/No Vomiting Muscle Tremors: None Anxiety: 0-No Anxiety, at Ease Agitation: 0-Normal Activity Paroxysmal Sweats: No Perspiration Orientation: 0-Oriented Tacttile Disturbances: 0-None Auditory Disturbances: 0-None Visual Disturbances: 0-None Headache: 0-None Present CIWA-Ar Total Score: 0 Assessment Plan - Plan Plan: 1. Alcohol use disorder: Patient does not endorse daily alcohol use and that it is intermittently around every 2 months and he drinks mixed drink with yang. He does not feel that drinking alcohol is a problem for him. He does not believe he has a use disorder. He is not willing to avail himself of detox services or rehab services. From his history of use, he wouldn't qualify for detox or rehab in either case. He should be referred to an outpatient alcohol treatment program that can improve his awareness of his use of alcohol and he can learn skills to remain abstinent from alcohol. If he is a local resident, he can be referred to [facility] where he can attend some groups and perhaps gain some insight into his use disorder. Dr. Sarabia - Medication Detox Regimen/Protocol: Not Applicable
--- NOTE | 2019-12-18 15:55 | PN ---
Physical Exam: SUBJECTIVE: Patient seen and examined at bedside this AM. Overnight there were no acute events. This AM he says he is feeling well and would like to return home. OBJECTIVE: Vital Signs Temp Pulse Resp BP Pulse Ox 98.5 F 75 20 113/60 97 12/18/19 14:05 12/18/19 14:05 12/18/19 14:05 12/18/19 14:05 12/18/19 09:00 GENERAL: AOx3, in no acute distress. HEAD: NCAT EYES: EBONI, EOMI, conjunctiva clear. ENT: Ears normal, nares patent, oropharynx clear without exudates. Moist mucous membranes. NECK: Normal range of motion, supple without lymphadenopathy, JVD, or masses. LUNGS: CTAB. No wheezes, and no crackles. No accessory muscle use. HEART: RRR s1 s2 ABDOMEN: Soft, BS present in all 4 quadrants, non-distended, no JVD, MUSCULOSKELETAL: No bony deformities or tenderness. No CVA tenderness. UPPER EXTREMITIES: 2+ pulses, warm, well-perfused. No cyanosis. No clubbing. No peripheral edema. LOWER EXTREMITIES: 2+ pulses, warm, well-perfused. No calf tenderness. No peripheral edema. NEUROLOGICAL: Cranial nerves II-XII intact. 4/5 muscle strength on the bilateral lower extremities. 5/5 on the upper extremities. Sensation intact to gross touch throughout. Dysmetria on FTN R>L. PSYCHIATRIC: Somewhat cooperative. Tangential and pressured speech. Non-violent and non-frightening delusional thought. SKIN: Diffuse bruises over entirety of body. BL valerio eschars, erythematous, non- purulent. Extensor surface lesion on LE digits. Laboratory Results - last 24 hr 12/17/19 12/18/19 12/18/19 06:04 06:33 06:33 WBC 7.9 RBC 2.45 L Hgb 8.4 L Hct 24.5 L MCV 100.0 H MCH 34.4 H MCHC 34.4 RDW 16.6 H Plt Count 157 MPV 7.9 Sodium 145 Potassium 3.1 L Chloride 114 H Carbon Dioxide 26 Anion Gap 6 L BUN 14.0 Creatinine 0.9 Est GFR (CKD-EPI)AfAm 100.65 Est GFR (CKD-EPI)NonAf 86.84 Random Glucose 85 Calcium 8.5 Total Bilirubin 1.0 AST 43 H ALT 22 Alkaline Phosphatase 118 H Total Protein 5.5 L Albumin 2.0 L Hep A IgM Ab Confirm Negative Hep Bs Antigen Negative Hep B Core IgM Ab Negative Hep C Ab Diagnostic <0.1 Hepatitis C Ab (EIA) <0.1 Active Medications Docusate Sodium (Colace -) 100 mg PO BID [facility] Last Admin: 12/18/19 09:30 Dose: 100 mg Folic Acid (Folic Acid -) 1 mg PO DAILY [facility] Last Admin: 12/18/19 09:31 Dose: 1 mg Gabapentin (Neurontin -) 400 mg PO DAILY [facility] Last Admin: 12/18/19 09:30 Dose: 400 mg Heparin Sodium (Porcine) (Heparin -) 5,000 unit SQ TID [facility] Last Admin: 12/18/19 13:07 Dose: 5,000 unit Lactated Ringer's (Lactated Ringers Solution) 1,000 ml in 1,000 mls @ 75 mls/ hr IV ASDIR [facility] Last Admin: 12/18/19 01:05 Dose: 75 mls/hr Vancomycin HCl (Vancomycin (Pre-Docked)) 1,000 mg in 250 mls @ 166.667 mls/hr IVPB Q12H [facility]; Protocol Last Admin: 12/18/19 12:06 Dose: 166.667 mls/hr Aztreonam 1 gm/ Dextrose 50 mls @ 100 mls/hr IVPB Q8H-IV [facility]; Protocol Last Admin: 12/18/19 09:31 Dose: 100 mls/hr Magnesium Oxide (Mag-Ox -) 400 mg PO DAILY [facility] Last Admin: 12/18/19 09:30 Dose: 400 mg Mirtazapine (Remeron -) 15 mg PO [facility] Multivitamins/Minerals/Vitamin C (Tab-A-Vit -) 1 tab PO DAILY [facility] Last Admin: 12/18/19 09:30 Dose: 1 tab Propranolol HCl (Inderal -) 10 mg PO DAILY [facility] Last Admin: 12/18/19 09:31 Dose: 10 mg Thiamine HCl (Vitamin B1 -) 100 mg PO DAILY [facility] Last Admin: 12/18/19 09:30 Dose: 100 mg ASSESSMENT/PLAN: 69 y/o male PMH HTN, genetic cerebellar ataxia, insomnia, depression, bipolar disorder, schizoaffective disorder admitted for poor ability to ambulate likely secondary to cerebellar ataxia and UTI. # Difficulty ambulating - pensions retirement plan specialist: does not qualify for rehab/detox. He can be referred to an outpatient alcohol treatment program such as [facility] - Cerebellar ataxia (age 3) - U tox neg, high b12/folate - Hepatic panel ordered, RUQ U/S, ammonia level - PT: Walked 30 feet. Could benefit from use of walker. - Fall precautions # Prolonged QTC # UTI - PNC allergy - Aztreonam # RIGHT LE extensor surface cellulitis, distal LE cellulitis - ID consulted - Vancomycin and aztreonam #MARKO, resolved - Poss 2/2 dehydration - IVF - Cr 0.9 today # Macrocytic anemia - H/H 8.4/24.5 today 9.8/28.8 - MCV 100 - No clinical evidence of bleeding. Consider possible dilution. - High b12 (1916)/folate (23) - Given h/o etoh abuse, thiamine, MVI, folic acid # Schizoaffective disorder/bipolar depression - Consult psych: DC seroquel, reduce mirtazepine, reduce buproprion, PT LACKS CAPACITY - New regimen: , buproprion 100 mg po qd, mirtazapine 15 mg po qd # F/E/N - NS - Cont. to monitor - Low sodium diet # DVT prophylaxis - Heparin SQ # Disposition - Med/surg Sumit Lebron MD Visit type - Emergency Visit Emergency Visit: No - New Patient This patient is new to me today: No - Critical Care Critical Care patient: No ATTENDING PHYSICIAN STATEMENT I saw and evaluated the patient. I reviewed the resident's note and discussed the case with the resident. I agree with the resident's findings and plan as documented. SUBJECTIVE: OBJECTIVE: ASSESSMENT AND PLAN:
[2019-12-18] MEDS: THIAMINE HCL 200 MG/2 ML VIAL IVPB SCH (18:46)
--- NOTE | 2019-12-18 18:46 | CONSULT ---
Consult - text type - Consultation Consultation Note: NEUROLOGY CONSULTATION is greatly appreciated: Events reviewed. Patient examined. This 65 yo RH single man lives alone. Former psychologist disabled by bipolar disease. Seen by me in 2015 in evaluation of tremors and ataxia. These increased when on [place] and improved when off. Former Alcoholic. Admits to "a few drinks since the holidays." Now maintained on: Bupropion 150; Gabapentin 400 qd; Magnesium; Mirtazapine 30; Propranolol HCl 10 mg qd; and Quetiapine 200 mg PO HS. Admitted with increased confusion. increased ataxia (crawling in his apartment). Found to have severe UTI (Urine WBC=14,663! Now on Aztreonam and Vancomicin. CT of head (reviewed): Mild diffuse atrophy without focal changes. CT of Cervical spine: Moderate spondylosis withiut traumatic changes. P13=9943 pg% DINO: Cellulitis and scabs right valerio. Large ecchymosis left calf. Abrasion on back. No evidence of external head trauma. No bruits. Cor reg. Edentulous. Carpenter in situ NEURO: Ox 3. spells and reverses. Recalls 2 of 3 at 3 mins Fluent speech. No Frontal release. CN II-XII: normal without nystagmus Motor: No drift. NO TREMOR. No cogwheeling. Good ARASH's. Areflexic in legs. Toes downgoing Coord: No FTN dystaxia. Sensory: Decreased vib and position feet. Romberg + Gait: Wide-based waddling. IMP: Mild B/L cerebral dysfunction Peripheral neuropathy, etiology uncertain (ETOH?) Both will worsen with Toxic-metabolic encephalopathy (UTI, Urosepsis, Cellulitis) SUGGEST: Give thiamine parenterally (200 mg IVPB q 8 hrs x 3 days) Check TSH PT of gait with walker Continue antibiotics and hydration director of clinical services. Out patient neuro f/u for eval of neuropathy Thank you very much, Alex Dhaliwal MD
[2019-12-18] MEDS: MIRTAZAPINE 15 MG TABLET (FP) PO SCH (21:13)
[2019-12-19] MEDS ORDERED: AZTREONAM 1 GM VIAL (RESTRICTED TO ID) ONE ×3 (00:09→17:20)
[2019-12-19] MEDS ORDERED: DEXTROSE 5%-WATER - 50 ML IVPB ONE ×3 (00:10→17:20)
[2019-12-19] MEDS: VANCOMYCIN 1 GRAM (PRE-DOCKED) 1,000 MG/250 ML BAG IVPB SCH ×2 (00:41→12:55)
[2019-12-19] MEDS: LACTATED RINGERS SOLUTION 1,000 ML/1,000 ML INFUS.BAG IV SCH (01:08)
[2019-12-19] MEDS: AZTREONAM 1 GM in DEXTROSE 5%-WATER - 50 ML IVPB SCH ×3 (01:46→17:32)
[2019-12-19] MEDS: THIAMINE HCL 200 MG/2 ML VIAL IVPB SCH ×3 (03:31→18:28)
[2019-12-19] MEDS: HEPARIN NA (PORCINE) 5,000 UNITS/ML 1ML VIAL SQ SCH ×3 (05:27→21:39)
[2019-12-19 07:30] LABS: HEMATOCRIT 25.7 % (35.4-49); HEMOGLOBIN 8.8 GM/dL (11.7-16.9); MCH 34.3 pg (25.7-33.7); MCHC 34.4 g/dl (32.0-35.9); MEAN CELL VOLUME 99.8 fl (80-96); MEAN PLT VOLUME 7.7 fl (7.5-11.1); PLATELET COUNT 163 K/MM3 (134-434); RBC 2.57 M/mm3 (4.00-5.60); RDW 17.2 % (11.9-15.9); WHITE BLOOD COUNT 7.3 K/mm3 (4.0-10.0)
[2019-12-19 08:01] LABS: ALBUMIN 2.1 g/dl (3.4-5.0); CALCIUM 8.2 mg/dL (8.5-10.1); CREATININE 0.6 mg/dL (0.55-1.3); POTASSIUM 3.5 mmol/L (3.5-5.1); TOT PROT 5.6 g/dl (6.4-8.2)
[2019-12-19] MEDS: GABAPENTIN 400 MG CAPSULE PO SCH (09:05)
[2019-12-19] MEDS: MAGNESIUM OXIDE 400 MG TABLET (FP) PO SCH (09:05)
[2019-12-19] MEDS: FOLIC ACID 1 MG TABLET (FP) PO SCH (09:05)
[2019-12-19] MEDS: DOCUSATE SODIUM 100 MG CAPSULE (FP) PO SCH ×2 (09:05→21:38)
[2019-12-19] MEDS: MULTIVITAMINS (DAILY MVI) TABLET (FP) PO SCH (09:05)
--- NOTE | 2019-12-19 17:04 | PN ---
Progress Note (short form) - Note Progress Note: Patient is feeling better with no acute distress, with no acute distress. Vital Signs Temperature 98.7 F 12/19/19 14:43 Pulse Rate 73 12/19/19 14:43 Respiratory Rate 18 12/19/19 14:43 Blood Pressure 132/77 12/19/19 14:43 O2 Sat by Pulse Oximetry (%) 95 12/19/19 08:21 GENERAL: The patient is awake, alert, and fully oriented, in no acute distress. HEAD: Normal with no signs of trauma. EYES: PERRL, extraocular movements intact, sclera anicteric, conjunctiva clear. ENT: Ears normal, oropharynx clear without exudates, moist mucous membranes. NECK: Trachea midline, full range of motion, supple. LUNGS: Breath sounds equal, clear to auscultation bilaterally, no wheezes, no crackles, no accessory muscle use. HEART: Regular rate and rhythm, S1, S2 without murmur, rub or gallop. ABDOMEN: Soft, nontender, nondistended, normoactive bowel sounds, no guarding, no rebound, no hepatosplenomegaly, no masses. EXTREMITIES: 2+ pulses, warm, well-perfused, RLE cellulitis improving NEUROLOGICAL: Cranial nerves II through XII grossly intact. Normal speech, gait not observed. PSYCH: Normal mood, normal affect. SKIN: Warm, dry, normal turgor, multiple bruised lEs due to fall CBCD WBC 7.3 K/mm3 (4.0-10.0) 12/19/19 06:25 RBC 2.57 M/mm3 (4.00-5.60) L 12/19/19 06:25 Hgb 8.8 GM/dL (11.7-16.9) L 12/19/19 06:25 Hct 25.7 % (35.4-49) L 12/19/19 06:25 MCV 99.8 fl (80-96) H 12/19/19 06:25 MCHC 34.4 g/dl (32.0-35.9) 12/19/19 06:25 RDW 17.2 % (11.9-15.9) H 12/19/19 06:25 Plt Count 163 K/MM3 (134-434) 12/19/19 06:25 MPV 7.7 fl (7.5-11.1) 12/19/19 06:25 CMP Sodium 144 mmol/L (136-145) 12/19/19 06:25 Potassium 3.5 mmol/L (3.5-5.1) 12/19/19 06:25 Chloride 114 mmol/L (98-107) H 12/19/19 06:25 Carbon Dioxide 26 mmol/L (21-32) 12/19/19 06:25 Anion Gap 4 MMOL/L (8-16) L 12/19/19 06:25 BUN 10.0 mg/dL (7-18) 12/19/19 06:25 Creatinine 0.6 mg/dL (0.55-1.3) 12/19/19 06:25 Random Glucose 87 mg/dL (74-106) 12/19/19 06:25 Calcium 8.2 mg/dL (8.5-10.1) L 12/19/19 06:25 Total Bilirubin 1.0 mg/dL (0.2-1) 12/19/19 06:25 AST 43 U/L (15-37) H 12/19/19 06:25 ALT 25 U/L (13-61) 12/19/19 06:25 Alkaline Phosphatase 126 U/L (45-117) H 12/19/19 06:25 Total Protein 5.6 g/dl (6.4-8.2) L 12/19/19 06:25 Albumin 2.1 g/dl (3.4-5.0) L 12/19/19 06:25 CARDIAC ENZYMES Creatine Kinase 136 U/L (26-308) 12/17/19 06:04 Troponin I < 0.02 ng/ml (0.00-0.05) 12/16/19 14:30 Current Medications Generic Name Dose Route Start Last Admin Trade Name Freq PRN Reason Stop Dose Admin Docusate Sodium 100 mg 12/17/19 10:00 12/19/19 09:05 Colace - PO 100 mg BID ALEXIA Administration Folic Acid 1 mg 12/17/19 10:00 12/19/19 09:05 Folic Acid - PO 1 mg DAILY ALEXIA Administration Gabapentin 400 mg 12/17/19 10:00 12/19/19 09:05 Neurontin - PO 400 mg DAILY ALEXIA Administration Heparin Sodium (Porcine) 5,000 unit 12/17/19 06:00 12/19/19 14:05 Heparin - SQ 5,000 unit TID ALEXIA Administration Lactated Ringer's 1,000 ml in 1,000 mls @ 75 mls/hr 12/16/19 23:45 12/19/19 01:08 Lactated Ringers Solution IV Not Given ASDIR ALEXIA Vancomycin HCl 1,000 mg in 250 mls @ 166.667 mls/hr 12/17/19 13:00 12/19/19 12:55 Vancomycin (Pre-Docked) IVPB 166.667 mls/hr Q12H ALEXIA Administration Protocol Aztreonam 1 gm/ Dextrose 50 mls @ 100 mls/hr 12/17/19 18:00 12/19/19 09:06 IVPB 100 mls/hr Q8H-IV ALEXIA Administration Protocol Magnesium Oxide 400 mg 12/17/19 10:00 12/19/19 09:05 Mag-Ox - PO 400 mg DAILY ALEXIA Administration Mirtazapine 15 mg 12/18/19 22:00 12/18/19 21:13 Remeron - PO 15 mg HS ALEXIA Administration Multivitamins/Minerals/Vitamin C 1 tab 12/17/19 10:00 12/19/19 09:05 Tab-A-Vit - PO 1 tab DAILY ALEXIA Administration Propranolol HCl 10 mg 12/17/19 10:00 12/19/19 09:05 Inderal - PO 10 mg DAILY ALEXIA Administration Thiamine HCl 200 mg 12/18/19 18:45 12/19/19 11:45 Vitamin B1 Injection - IVPB 12/21/19 22:00 200 mg Q8H ALEXIA Administration Home Medications Medication Instructions Recorded Gabapentin 400 mg PO TID 12/16/19 Magnesium Oxide [Mag-Ox -] 400 mg PO BID 12/16/19 Propranolol HCl 10 mg PO BID 12/16/19 Cholecalciferol (Vitamin D3) 2,000 unit PO DAILY 12/17/19 [Vitamin D3] Docusate Sodium [Colace] 200 mg PO HS 12/17/19 Doxepin HCl 50 mg PO HS 12/17/19 Polyethylene Glycol 3350 [Miralax 17 gm PO ASDIR 12/17/19 (For Daily Use) -] Quetiapine Fumarate [Seroquel -] 100 mg PO AM 12/17/19 Quetiapine Fumarate [Seroquel -] 150 mg PO HS 12/17/19 12/16/19 18:55 Urine - Urine Clean Catch Urine Culture - Final S Aureus 12/18/19 06:15 Blood - Peripheral Venous Blood Culture - Preliminary NO GROWTH OBTAINED AFTER 24 HOURS, INCUBATION TO CONTINUE FOR 4 DAYS. 12/18/19 06:00 Blood - Peripheral Venous Blood Culture - Preliminary NO GROWTH OBTAINED AFTER 24 HOURS, INCUBATION TO CONTINUE FOR 4 DAYS. EKG--> 1st degree AV block, left axis deviation, QRS widening and LVH, no ST segment changes, QTc 520 ASSESSMENT/PLAN: Patient is a 69yom with PMHx of genetic cerebellar ataxia, insomnia, depression , HTN, bipolar disorder, schizoaffective disorder admitted for s/p fall with difficulty to ambulate with RLE cellultis and was found to have UTI. # Acute MRSA UTI on Vancomycin IV continue s/p azactam will discontinue since it MRSA #R valerio cellulitis with 2nd toe cellulitis: ON VAnco as per ID, blood cx neg. #MARKO O iv hYDration #macrocytic Anemia with nl folic acid and B12. 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 #Poor Ability to Ambulate with hx of of cerebellar ataxia (age 3 ) DVT PPx: heparin 5000 Visit type - Emergency Visit Emergency Visit: Yes ED Registration Date: 12/16/19 Care time: The patient presented to the Emergency Department on the above date and was hospitalized for further evaluation of their emergent condition. - New Patient This patient is new to me today: No - Critical Care Critical Care patient: No - Discharge Referral Referred to [facility] No
--- NOTE | 2019-12-19 17:55 | PN ---
Progress Note, Physician History of Present Illness: SEATED IN BED REPORTS LESS R LEG PAIN NO WOUND DRAINAGE REPORTED AFEBRILE WBC IMPROVED WNL BC (-) - Current Medication List Current Medications: Active Medications Docusate Sodium (Colace -) 100 mg PO BID [facility] Last Admin: 12/19/19 09:05 Dose: 100 mg Folic Acid (Folic Acid -) 1 mg PO DAILY [facility] Last Admin: 12/19/19 09:05 Dose: 1 mg Gabapentin (Neurontin -) 400 mg PO DAILY [facility] Last Admin: 12/19/19 09:05 Dose: 400 mg Heparin Sodium (Porcine) (Heparin -) 5,000 unit SQ TID [facility] Last Admin: 12/19/19 14:05 Dose: 5,000 unit Lactated Ringer's (Lactated Ringers Solution) 1,000 ml in 1,000 mls @ 75 mls/ hr IV ASDIR [facility] Last Admin: 12/19/19 01:08 Dose: Not Given Vancomycin HCl (Vancomycin (Pre-Docked)) 1,000 mg in 250 mls @ 166.667 mls/hr IVPB Q12H [facility]; Protocol Last Admin: 12/19/19 12:55 Dose: 166.667 mls/hr Aztreonam 1 gm/ Dextrose 50 mls @ 100 mls/hr IVPB Q8H-IV ALEXIA; Protocol Last Admin: 12/19/19 17:32 Dose: 100 mls/hr Magnesium Oxide (Mag-Ox -) 400 mg PO DAILY [facility] Last Admin: 12/19/19 09:05 Dose: 400 mg Mirtazapine (Remeron -) 15 mg PO HS [facility] Last Admin: 12/18/19 21:13 Dose: 15 mg Multivitamins/Minerals/Vitamin C (Tab-A-Vit -) 1 tab PO DAILY [facility] Last Admin: 12/19/19 09:05 Dose: 1 tab Propranolol HCl (Inderal -) 10 mg PO DAILY [facility] Last Admin: 12/19/19 09:05 Dose: 10 mg Thiamine HCl (Vitamin B1 Injection -) 200 mg IVPB Q8H [facility] Stop: 12/21/19 22:00 Last Admin: 12/19/19 11:45 Dose: 200 mg - Objective Vital Signs: Vital Signs Temperature 98.7 F 12/19/19 14:43 Pulse Rate 73 12/19/19 14:43 Respiratory Rate 18 12/19/19 14:43 Blood Pressure 132/77 12/19/19 14:43 O2 Sat by Pulse Oximetry (%) 95 12/19/19 08:21 Constitutional: Yes: No Distress Cardiovascular: Yes: Regular Rate and Rhythm, S1, S2 Respiratory: Yes: CTA Bilaterally Gastrointestinal: Yes: Normal Bowel Sounds, Soft Extremities: Yes: Other (DECREASED ERYTHEMA L LE) Labs: CBC, BMP 12/19/19 06:25 12/19/19 06:25 INR, PTT INR 1.15 (0.83-1.09) H 12/16/19 14:30 Assessment/Plan CELLULITIS R/O SEPSIS SECONDARY TO SKIN SOURCE + URINE C/S MRSA R/O BACTEREMIA PCN ALLERGY CONTINUE VANCOMYCIN/ AZTREONAM
[2019-12-19] MEDS: MIRTAZAPINE 15 MG TABLET (FP) PO SCH (21:38)
[2019-12-20] MEDS: ACETAMINOPHEN 325 MG TABLET (FP) PO PRN ×4 (00:29→14:22)
[2019-12-20] MEDS: VANCOMYCIN 1 GRAM (PRE-DOCKED) 1,000 MG/250 ML BAG IVPB SCH ×2 (00:30→14:23)
[2019-12-20] MEDS: LACTATED RINGERS SOLUTION 1,000 ML/1,000 ML INFUS.BAG IV SCH ×4 (00:35→23:50)
[2019-12-20] MEDS: THIAMINE HCL 200 MG/2 ML VIAL IVPB SCH ×4 (03:00→18:04)
[2019-12-20] MEDS: HEPARIN NA (PORCINE) 5,000 UNITS/ML 1ML VIAL SQ SCH ×3 (05:29→21:57)
[2019-12-20] MEDS: GABAPENTIN 400 MG CAPSULE PO SCH ×2 (08:56→09:32)
[2019-12-20] MEDS: MULTIVITAMINS (DAILY MVI) TABLET (FP) PO SCH ×2 (08:57→09:32)
[2019-12-20] MEDS: DOCUSATE SODIUM 100 MG CAPSULE (FP) PO SCH ×3 (08:57→21:57)
[2019-12-20] MEDS: MAGNESIUM OXIDE 400 MG TABLET (FP) PO SCH ×2 (08:57→09:32)
[2019-12-20] MEDS: FOLIC ACID 1 MG TABLET (FP) PO SCH ×2 (08:57→09:32)
--- NOTE | 2019-12-20 15:56 | PN ---
Physical Exam: SUBJECTIVE: Patient seen and examined at bedside this AM. Overnight there were no acute events. This AM he says he is feeling well and is happy about his progress. RN Renée reports he has some back pain and comments on red spot on back. On interview pt says he feels well and denies any new pain. OBJECTIVE: Vital Signs Temp Pulse Resp BP Pulse Ox 98.5 F 72 20 134/82 95 12/20/19 15:06 12/20/19 15:06 12/20/19 15:12/20/19 15:12/20/19 09:00 GENERAL: AOx3, in no acute distress. HEAD: NCAT EYES: EBONI, EOMI, conjunctiva clear. ENT: Ears normal, nares patent, oropharynx clear without exudates. Moist mucous membranes. NECK: Normal range of motion, supple without lymphadenopathy, JVD, or masses. LUNGS: CTAB. No wheezes, and no crackles. No accessory muscle use. HEART: RRR s1 s2 ABDOMEN: Soft, BS present in all 4 quadrants, non-distended, no JVD, MUSCULOSKELETAL: No bony deformities or tenderness. No CVA tenderness. UPPER EXTREMITIES: 2+ pulses, warm, well-perfused. No cyanosis. No clubbing. No peripheral edema. LOWER EXTREMITIES: 2+ pulses, warm, well-perfused. No calf tenderness. No peripheral edema. NEUROLOGICAL: Cranial nerves II-XII intact. 4/5 muscle strength on the bilateral lower extremities. 5/5 on the upper extremities. Sensation intact to gross touch throughout. Dysmetria on FTN R>L. PSYCHIATRIC: Somewhat cooperative. Tangential and pressured speech. Non-violent and non-frightening delusional thought. SKIN: 6cm in diameter, round, area of errythema mid-thorax. Diffuse bruises over entirety of body. BL valerio eschars, erythematous, non-purulent greater on RIGHT. Extensor surface lesion on LE digits. Active Medications Acetaminophen (Tylenol -) 650 mg PO Q6H PRN PRN Reason: PAIN 5-6 Last Admin: 12/20/19 14:22 Dose: 650 mg Docusate Sodium (Colace -) 100 mg PO BID [facility] Last Admin: 12/20/19 09:32 Dose: Not Given Folic Acid (Folic Acid -) 1 mg PO DAILY [facility] Last Admin: 12/20/19 09:32 Dose: Not Given Gabapentin (Neurontin -) 400 mg PO DAILY ALEXIA Last Admin: 12/20/19 09:32 Dose: Not Given Heparin Sodium (Porcine) (Heparin -) 5,000 unit SQ TID [facility] Last Admin: 12/20/19 14:23 Dose: 5,000 unit Lactated Ringer's (Lactated Ringers Solution) 1,000 ml in 1,000 mls @ 75 mls/ hr IV ASDIR ALEXIA Last Admin: 12/20/19 05:32 Dose: 75 mls/hr Vancomycin HCl (Vancomycin (Pre-Docked)) 1,000 mg in 250 mls @ 166.667 mls/hr IVPB Q12H [facility]; Protocol Last Admin: 12/20/19 14:23 Dose: 166.667 mls/hr Magnesium Oxide (Mag-Ox -) 400 mg PO DAILY [facility] Last Admin: 12/20/19 09:32 Dose: Not Given Mirtazapine (Remeron -) 15 mg PO HS [facility] Last Admin: 12/19/19 21:38 Dose: 15 mg Multivitamins/Minerals/Vitamin C (Tab-A-Vit -) 1 tab PO DAILY [facility] Last Admin: 12/20/19 09:32 Dose: Not Given Propranolol HCl (Inderal -) 10 mg PO DAILY [facility] Last Admin: 12/20/19 09:32 Dose: Not Given Thiamine HCl (Vitamin B1 Injection -) 200 mg IVPB Q8H [facility] Stop: 12/21/19 22:00 Last Admin: 12/20/19 11:49 Dose: Not Given ASSESSMENT/PLAN: 69 y/o male PMH HTN, genetic cerebellar ataxia, insomnia, depression, bipolar disorder, schizoaffective disorder admitted for poor ability to ambulate likely secondary to cerebellar ataxia and UTI. # Difficulty ambulating - Cerebellar ataxia (age 3) - PT: Walks 50' with assistance; continues exercise - RUQ US: contracted gb, heterogenous liver suspicious for hepatocellular disease - AST/ALT 43/45 - Hep panel NEG - Ammonia 65.2 -> lactulose with goal of 3 bm per day - Fall precautions - Thiamine parenterally (200 mg IVPB q 8 hrs x 3 days) # Prolonged QTC # UTI - PNC allergy - Aztreonam # RIGHT LE extensor surface cellulitis, distal LE cellulitis - ID consulted - Vancomycin 1 gm IV BID # Macrocytic anemia - H/H 8.8/25.7 - MCV 99.8 - No clinical evidence of bleeding. Consider possible dilution. - High b12 (1916)/folate (23) - Given h/o etoh abuse, thiamine, MVI, folic acid # Schizoaffective disorder/bipolar depression - Consult psych: DC seroquel, reduce mirtazepine, reduce buproprion, PT LACKS CAPACITY - New regimen: buproprion 100 mg po qd, mirtazapine 15 mg po qd # F/E/N - NS - Cont. to monitor - Low sodium diet # DVT prophylaxis - Heparin SQ # Disposition - Med/surg - Outpatient alcohol treatment program such as [facility] - Outpatient neuro f/u for eval of neuropathy Sumit Lebron MD Visit type - Emergency Visit Emergency Visit: No - New Patient This patient is new to me today: No - Critical Care Critical Care patient: No ATTENDING PHYSICIAN STATEMENT I saw and evaluated the patient. I reviewed the resident's note and discussed the case with the resident. I agree with the resident's findings and plan as documented. SUBJECTIVE: OBJECTIVE: ASSESSMENT AND PLAN:
--- NOTE | 2019-12-20 19:26 | PN ---
Teaching Attending Note Name of Resident: Sumit Lebron ATTENDING PHYSICIAN STATEMENT I saw and evaluated the patient. I reviewed the resident's note and discussed the case with the resident. I agree with the resident's findings and plan as documented. SUBJECTIVE: Patient is feeling better with no acute distress. Vital Signs Temperature 98 F 12/20/19 19:00 Pulse Rate 79 12/20/19 19:00 Respiratory Rate 20 12/20/19 19:00 Blood Pressure 146/82 12/20/19 19:00 O2 Sat by Pulse Oximetry (%) 95 12/20/19 09:00 GENERAL: The patient is awake, alert, and fully oriented, in no acute distress. HEAD: Normal with no signs of trauma. EYES: PERRL, extraocular movements intact, sclera anicteric, conjunctiva clear. ENT: Ears normal, oropharynx clear without exudates, moist mucous membranes. NECK: Trachea midline, full range of motion, supple. LUNGS: Breath sounds equal, clear to auscultation bilaterally, no wheezes, no crackles, no accessory muscle use. HEART: Regular rate and rhythm, S1, S2 without murmur, rub or gallop. ABDOMEN: Soft, nontender, nondistended, normoactive bowel sounds, no guarding, no rebound, no hepatosplenomegaly, no masses. EXTREMITIES: 2+ pulses, warm, well-perfused, RLE cellulitis improving NEUROLOGICAL: Cranial nerves II through XII grossly intact. Normal speech, gait not observed. PSYCH: Normal mood, normal affect. SKIN: Warm, dry, normal turgor, multiple bruised lEs due to fall CBCD WBC 7.3 K/mm3 (4.0-10.0) 12/19/19 06:25 RBC 2.57 M/mm3 (4.00-5.60) L 12/19/19 06:25 Hgb 8.8 GM/dL (11.7-16.9) L 12/19/19 06:25 Hct 25.7 % (35.4-49) L 12/19/19 06:25 MCV 99.8 fl (80-96) H 12/19/19 06:25 MCHC 34.4 g/dl (32.0-35.9) 12/19/19 06:25 RDW 17.2 % (11.9-15.9) H 12/19/19 06:25 Plt Count 163 K/MM3 (134-434) 12/19/19 06:25 MPV 7.7 fl (7.5-11.1) 12/19/19 06:25 CMP Sodium 144 mmol/L (136-145) 12/19/19 06:25 Potassium 3.5 mmol/L (3.5-5.1) 12/19/19 06:25 Chloride 114 mmol/L (98-107) H 12/19/19 06:25 Carbon Dioxide 26 mmol/L (21-32) 12/19/19 06:25 Anion Gap 4 MMOL/L (8-16) L 12/19/19 06:25 BUN 10.0 mg/dL (7-18) 12/19/19 06:25 Creatinine 0.6 mg/dL (0.55-1.3) 12/19/19 06:25 Random Glucose 87 mg/dL (74-106) 12/19/19 06:25 Calcium 8.2 mg/dL (8.5-10.1) L 12/19/19 06:25 Total Bilirubin 1.0 mg/dL (0.2-1) 12/19/19 06:25 AST 43 U/L (15-37) H 12/19/19 06:25 ALT 25 U/L (13-61) 12/19/19 06:25 Alkaline Phosphatase 126 U/L (45-117) H 12/19/19 06:25 Total Protein 5.6 g/dl (6.4-8.2) L 12/19/19 06:25 Albumin 2.1 g/dl (3.4-5.0) L 12/19/19 06:25 CARDIAC ENZYMES Creatine Kinase 136 U/L (26-308) 12/17/19 06:04 Troponin I < 0.02 ng/ml (0.00-0.05) 12/16/19 14:30 Home Medications Medication Instructions Recorded Gabapentin 400 mg PO TID 12/16/19 Magnesium Oxide [Mag-Ox -] 400 mg PO BID 12/16/19 Propranolol HCl 10 mg PO BID 12/16/19 Cholecalciferol (Vitamin D3) 2,000 unit PO DAILY 12/17/19 [Vitamin D3] Docusate Sodium [Colace] 200 mg PO HS 12/17/19 Doxepin HCl 50 mg PO HS 12/17/19 Polyethylene Glycol 3350 [Miralax 17 gm PO ASDIR 12/17/19 (For Daily Use) -] Quetiapine Fumarate [Seroquel -] 100 mg PO AM 12/17/19 Quetiapine Fumarate [Seroquel -] 150 mg PO HS 12/17/19 Current Medications Generic Name Dose Route Start Last Admin Trade Name Freq PRN Reason Stop Dose Admin Acetaminophen 650 mg 12/20/19 00:07 12/20/19 14:22 Tylenol - PO 650 mg Q6H PRN Administration PAIN 5-6 Docusate Sodium 100 mg 12/17/19 10:00 12/20/19 09:32 Colace - PO Not Given BID [facility] Folic Acid 1 mg 12/17/19 10:00 12/20/19 09:32 Folic Acid - PO Not Given DAILY [facility] Gabapentin 400 mg 12/17/19 10:00 12/20/19 09:32 Neurontin - PO Not Given DAILY [facility] Heparin Sodium (Porcine) 5,000 unit 12/17/19 06:00 12/20/19 14:23 Heparin - SQ 5,000 unit TID ALEXIA Administration Lactated Ringer's 1,000 ml in 1,000 mls @ 75 mls/hr 12/16/19 23:45 12/20/19 05:32 Lactated Ringers Solution IV 75 mls/hr ASDIR ALEXIA Administration Vancomycin HCl 1,000 mg in 250 mls @ 166.667 mls/hr 12/17/19 13:00 12/20/19 14:23 Vancomycin (Pre-Docked) IVPB 166.667 mls/hr Q12H ALEXIA Administration Protocol Magnesium Oxide 400 mg 12/17/19 10:00 12/20/19 09:32 Mag-Ox - PO Not Given DAILY [facility] Mirtazapine 15 mg 12/18/19 22:00 12/19/19 21:38 Remeron - PO 15 mg HS ALEXIA Administration Multivitamins/Minerals/Vitamin C 1 tab 12/17/19 10:00 12/20/19 09:32 Tab-A-Vit - PO Not Given DAILY [facility] Propranolol HCl 10 mg 12/17/19 10:00 12/20/19 09:32 Inderal - PO Not Given DAILY [facility] Thiamine HCl 200 mg 12/18/19 18:45 12/20/19 18:04 Vitamin B1 Injection - IVPB 12/21/19 22:00 200 mg Q8H ALEXIA Administration 12/16/19 18:55 Urine - Urine Clean Catch Urine Culture - Final Mr Marie Aureus 12/18/19 06:15 Blood - Peripheral Venous Blood Culture - Preliminary NO GROWTH OBTAINED AFTER 24 HOURS, INCUBATION TO CONTINUE FOR 4 DAYS. 12/18/19 06:00 Blood - Peripheral Venous Blood Culture - Preliminary NO GROWTH OBTAINED AFTER 24 HOURS, INCUBATION TO CONTINUE FOR 4 DAYS. EKG--> 1st degree AV block, left axis deviation, QRS widening and LVH, no ST segment changes, QTc 520 ASSESSMENT/PLAN: Patient is a 69yom with PMHx of genetic cerebellar ataxia, insomnia, depression , HTN, bipolar disorder, schizoaffective disorder admitted for s/p fall with difficulty to ambulate with RLE cellultis and was found to have UTI. # Acute MRSA UTI on Vancomycin IV continue s/p azactam will discontinue since it MRSA , will check ID the length of treatment. #R valerio cellulitis with 2nd toe cellulitis: ON VAnco as per ID, blood cx neg. #MARKO on iv hYDration #macrocytic Anemia with nl folic acid and B12. 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 will repeat the EKG #Poor Ability to Ambulate with hx of of cerebellar ataxia (age 3 ) DVT PPx: heparin 5000
[2019-12-20] MEDS: MIRTAZAPINE 15 MG TABLET (FP) PO SCH (21:57)
[2019-12-21] MEDS: VANCOMYCIN 1 GRAM (PRE-DOCKED) 1,000 MG/250 ML BAG IVPB SCH ×2 (00:49→12:01)
[2019-12-21] MEDS: ACETAMINOPHEN 325 MG TABLET (FP) PO PRN ×4 (02:17→23:06)
[2019-12-21] MEDS: THIAMINE HCL 200 MG/2 ML VIAL IVPB SCH ×3 (02:39→17:46)
[2019-12-21] MEDS: HEPARIN NA (PORCINE) 5,000 UNITS/ML 1ML VIAL SQ SCH ×3 (05:58→23:06)
[2019-12-21 07:16] LABS: HEMATOCRIT 28.1 % (35.4-49); HEMOGLOBIN 9.4 GM/dL (11.7-16.9); MCH 33.7 pg (25.7-33.7); MCHC 33.6 g/dl (32.0-35.9); MEAN CELL VOLUME 100.3 fl (80-96); MEAN PLT VOLUME 7.6 fl (7.5-11.1); PLATELET COUNT 185 K/MM3 (134-434); RDW 17.4 % (11.9-15.9); WHITE BLOOD COUNT 8.3 K/mm3 (4.0-10.0)
[2019-12-21 08:03] LABS: ALBUMIN 2.1 g/dl (3.4-5.0); BILIRUBIN,TOTAL 1.6 mg/dL (0.2-1); CALCIUM 8.3 mg/dL (8.5-10.1); CREATININE 0.6 mg/dL (0.55-1.3); POTASSIUM 3.4 mmol/L (3.5-5.1)
[2019-12-21] MEDS ORDERED: POTASSIUM CHLORIDE TABS 20 MEQ TABLET.ER (FP) PO ONE ×3 (08:15→09:15)
[2019-12-21] MEDS: MAGNESIUM OXIDE 400 MG TABLET (FP) PO SCH (09:00)
[2019-12-21] MEDS: FOLIC ACID 1 MG TABLET (FP) PO SCH (09:00)
[2019-12-21] MEDS: MULTIVITAMINS (DAILY MVI) TABLET (FP) PO SCH (09:00)
[2019-12-21] MEDS: DOCUSATE SODIUM 100 MG CAPSULE (FP) PO SCH ×2 (09:00→22:03)
[2019-12-21] MEDS: GABAPENTIN 400 MG CAPSULE PO SCH (09:01)
--- NOTE | 2019-12-21 11:56 | PN ---
Physical Exam: SUBJECTIVE: Patient seen and examined at bedside. There were no acute events overnight. This AM her says he feels well and pain is under control. OBJECTIVE: Vital Signs Temp Pulse Resp BP Pulse Ox 97.9 F 76 20 131/75 95 12/21/19 14:31 12/21/19 14:31 12/21/19 14:31 12/21/19 14:31 12/21/19 09:00 GENERAL: AOx3, in no acute distress. HEAD: NCAT EYES: EBONI, EOMI, conjunctiva clear. ENT: Ears normal, nares patent, oropharynx clear without exudates. Moist mucous membranes. NECK: Normal range of motion, supple without lymphadenopathy, JVD, or masses. LUNGS: CTAB. No wheezes, and no crackles. No accessory muscle use. HEART: RRR s1 s2 ABDOMEN: Soft, BS present in all 4 quadrants, non-distended, no JVD, MUSCULOSKELETAL: No bony deformities or tenderness. No CVA tenderness. UPPER EXTREMITIES: 2+ pulses, warm, well-perfused. No cyanosis. No clubbing. No peripheral edema. LOWER EXTREMITIES: 2+ pulses, warm, well-perfused. No calf tenderness. No peripheral edema. NEUROLOGICAL: Cranial nerves II-XII intact. 4/5 muscle strength on the bilateral lower extremities. 5/5 on the upper extremities. Sensation intact to gross touch throughout. Dysmetria on FTN R>L. PSYCHIATRIC: Somewhat cooperative. Tangential and pressured speech. Non-violent and non-frightening delusional thought. SKIN: Overall improvement in appearance of diffuse bruises. BL valerio eschars, erythematous, non-purulent greater on RIGHT. Extensor surface lesion on LE digits. 6cm in diameter, round, area of errythema mid-thorax. Laboratory Results - last 24 hr 12/21/19 12/21/19 06:40 06:40 WBC 8.3 RBC 2.80 L Hgb 9.4 L Hct 28.1 L MCV 100.3 H MCH 33.7 MCHC 33.6 RDW 17.4 H Plt Count 185 MPV 7.6 Sodium 143 Potassium 3.4 L Chloride 110 H Carbon Dioxide 27 Anion Gap 6 L BUN 6.0 L Creatinine 0.6 Est GFR (CKD-EPI)AfAm 118.90 Est GFR (CKD-EPI)NonAf 102.59 Random Glucose 81 Calcium 8.3 L Total Bilirubin 1.6 H AST 37 ALT 25 Alkaline Phosphatase 137 H Total Protein 6.0 L Albumin 2.1 L TSH 3.68 Active Medications Acetaminophen (Tylenol -) 650 mg PO Q6H PRN PRN Reason: PAIN 5-6 Last Admin: 12/21/19 08:58 Dose: 650 mg Docusate Sodium (Colace -) 100 mg PO BID [facility] Last Admin: 12/21/19 09:00 Dose: Not Given Folic Acid (Folic Acid -) 1 mg PO DAILY [facility] Last Admin: 12/21/19 09:00 Dose: 1 mg Gabapentin (Neurontin -) 400 mg PO DAILY [facility] Last Admin: 12/21/19 09:01 Dose: 400 mg Heparin Sodium (Porcine) (Heparin -) 5,000 unit SQ TID [facility] Last Admin: 12/21/19 13:23 Dose: 5,000 unit Lactated Ringer's (Lactated Ringers Solution) 1,000 ml in 1,000 mls @ 75 mls/ hr IV ASDIR [facility] Last Admin: 12/21/19 12:02 Dose: 75 mls/hr Vancomycin HCl (Vancomycin (Pre-Docked)) 1,000 mg in 250 mls @ 166.667 mls/hr IVPB Q12H [facility]; Protocol Last Admin: 12/21/19 12:01 Dose: 166.667 mls/hr Magnesium Oxide (Mag-Ox -) 400 mg PO DAILY [facility] Last Admin: 12/21/19 09:00 Dose: 400 mg Mirtazapine (Remeron -) 15 mg PO HS [facility] Last Admin: 12/20/19 21:57 Dose: 15 mg Multivitamins/Minerals/Vitamin C (Tab-A-Vit -) 1 tab PO DAILY [facility] Last Admin: 12/21/19 09:00 Dose: 1 tab Propranolol HCl (Inderal -) 10 mg PO DAILY [facility] Last Admin: 12/21/19 09:00 Dose: 10 mg Thiamine HCl (Vitamin B1 Injection -) 200 mg IVPB Q8H [facility] Stop: 12/21/19 22:00 Last Admin: 12/21/19 10:21 Dose: 200 mg ASSESSMENT/PLAN: 69 y/o male PMH HTN, genetic cerebellar ataxia, insomnia, depression, bipolar disorder, schizoaffective disorder admitted for poor ability to ambulate likely secondary to cerebellar ataxia and UTI. # Difficulty ambulating - Cerebellar ataxia (age 3) - PT: Walks 50' with assistance; continues exercise - Fall precautions - Thiamine parenterally (200 mg IVPB q 8 hrs x 3 days) # RIGHT LE extensor surface cellulitis, distal LE cellulitis - ID consulted - Vancomycin 1 gm IV BID # Macrocytic anemia - H/H improved 9.4/28.1 - MCV 100.3 # Transaminitis, resolved - RUQ US: contracted gb, heterogenous liver suspicious for hepatocellular disease - AST/ALT normal today 37/25 - Hep panel NEG # Schizoaffective disorder/bipolar depression - Consult psych: DC seroquel, reduce mirtazepine, reduce buproprion, PT LACKS CAPACITY - New regimen: buproprion 100 mg po qd, mirtazapine 15 mg po qd # Prolonged QTC # UTI - MRSA # F/E/N - NS - Cont. to monitor - Low sodium diet # DVT prophylaxis - Heparin SQ # Disposition - Med/surg - Outpatient alcohol treatment program such as [facility] - Outpatient neuro f/u for eval of neuropathy Sumit Lebron MD Visit type - Emergency Visit Emergency Visit: No - New Patient This patient is new to me today: No - Critical Care Critical Care patient: No ATTENDING PHYSICIAN STATEMENT I saw and evaluated the patient. I reviewed the resident's note and discussed the case with the resident. I agree with the resident's findings and plan as documented. SUBJECTIVE: OBJECTIVE: ASSESSMENT AND PLAN:
[2019-12-21] MEDS: LACTATED RINGERS SOLUTION 1,000 ML/1,000 ML INFUS.BAG IV SCH (12:02)
--- NOTE | 2019-12-21 17:07 | PN ---
Teaching Attending Note Name of Resident: Sumit Lebron ATTENDING PHYSICIAN STATEMENT I saw and evaluated the patient. I reviewed the resident's note and discussed the case with the resident. I agree with the resident's findings and plan as documented. SUBJECTIVE: Patient is better today. Vital Signs Temperature 97.9 F 12/21/19 14:31 Pulse Rate 76 12/21/19 14:31 Respiratory Rate 20 12/21/19 14:31 Blood Pressure 131/75 12/21/19 14:31 O2 Sat by Pulse Oximetry (%) 95 12/21/19 09:00 GENERAL: The patient is awake, alert, and fully oriented, in no acute distress. HEAD: Normal with no signs of trauma. EYES: PERRL, extraocular movements intact, sclera anicteric, conjunctiva clear. ENT: Ears normal, oropharynx clear without exudates, moist mucous membranes. NECK: Trachea midline, full range of motion, supple. LUNGS: Breath sounds equal, clear to auscultation bilaterally, no wheezes, no crackles, no accessory muscle use. HEART: Regular rate and rhythm, S1, S2 without murmur, rub or gallop. ABDOMEN: Soft, nontender, nondistended, normoactive bowel sounds, no guarding, no rebound, no hepatosplenomegaly, no masses. EXTREMITIES: 2+ pulses, warm, well-perfused, RLE cellulitis improving NEUROLOGICAL: Cranial nerves II through XII grossly intact. Normal speech, gait not observed. PSYCH: Normal mood, normal affect. SKIN: Warm, dry, normal turgor, multiple bruised lEs due to fall CBCD WBC 8.3 K/mm3 (4.0-10.0) 12/21/19 06:40 RBC 2.80 M/mm3 (4.00-5.60) L 12/21/19 06:40 Hgb 9.4 GM/dL (11.7-16.9) L 12/21/19 06:40 Hct 28.1 % (35.4-49) L 12/21/19 06:40 MCV 100.3 fl (80-96) H 12/21/19 06:40 MCHC 33.6 g/dl (32.0-35.9) 12/21/19 06:40 RDW 17.4 % (11.9-15.9) H 12/21/19 06:40 Plt Count 185 K/MM3 (134-434) 12/21/19 06:40 MPV 7.6 fl (7.5-11.1) 12/21/19 06:40 CMP Sodium 143 mmol/L (136-145) 12/21/19 06:40 Potassium 3.4 mmol/L (3.5-5.1) L 12/21/19 06:40 Chloride 110 mmol/L (98-107) H 12/21/19 06:40 Carbon Dioxide 27 mmol/L (21-32) 12/21/19 06:40 Anion Gap 6 MMOL/L (8-16) L 12/21/19 06:40 BUN 6.0 mg/dL (7-18) L 12/21/19 06:40 Creatinine 0.6 mg/dL (0.55-1.3) 12/21/19 06:40 Random Glucose 81 mg/dL (74-106) 12/21/19 06:40 Calcium 8.3 mg/dL (8.5-10.1) L 12/21/19 06:40 Total Bilirubin 1.6 mg/dL (0.2-1) H 12/21/19 06:40 AST 37 U/L (15-37) 12/21/19 06:40 ALT 25 U/L (13-61) 12/21/19 06:40 Alkaline Phosphatase 137 U/L (45-117) H 12/21/19 06:40 Total Protein 6.0 g/dl (6.4-8.2) L 12/21/19 06:40 Albumin 2.1 g/dl (3.4-5.0) L 12/21/19 06:40 CARDIAC ENZYMES Creatine Kinase 136 U/L (26-308) 12/17/19 06:04 Troponin I < 0.02 ng/ml (0.00-0.05) 12/16/19 14:30 Current Medications Generic Name Dose Route Start Last Admin Trade Name Freq PRN Reason Stop Dose Admin Acetaminophen 650 mg 12/20/19 00:07 12/21/19 08:58 Tylenol - PO 650 mg Q6H PRN Administration PAIN 5-6 Docusate Sodium 100 mg 12/17/19 10:00 12/21/19 09:00 Colace - PO Not Given BID ALEXIA Folic Acid 1 mg 12/17/19 10:00 12/21/19 09:00 Folic Acid - PO 1 mg DAILY [facility] Administration Gabapentin 400 mg 12/17/19 10:00 12/21/19 09:01 Neurontin - PO 400 mg DAILY [facility] Administration Heparin Sodium (Porcine) 5,000 unit 12/17/19 06:00 12/21/19 13:23 Heparin - SQ 5,000 unit TID [facility]LEX[facility] Administration Lactated Ringer's 1,000 ml in 1,000 mls @ 75 mls/hr 12/16/19 23:45 12/21/19 12:02 Lactated Ringers Solution IV 75 mls/hr ASDIR [facility] Administration Vancomycin HCl 1,000 mg in 250 mls @ 166.667 mls/hr 12/17/19 13:00 12/21/19 12:01 Vancomycin (Pre-Docked) IVPB 166.667 mls/hr Q12H [facility]LEX[facility] Administration Protocol Magnesium Oxide 400 mg 12/17/19 10:00 12/21/19 09:00 Mag-Ox - PO 400 mg DAILY [facility] Administration Mirtazapine 15 mg 12/18/19 22:00 12/20/19 21:57 Remeron - PO 15 mg HS [facility]LEX[facility] Administration Multivitamins/Minerals/Vitamin C 1 tab 12/17/19 10:00 12/21/19 09:00 Tab-A-Vit - PO 1 tab DAILY [facility] Administration Propranolol HCl 10 mg 12/17/19 10:00 12/21/19 09:00 Inderal - PO 10 mg DAILY [facility] Administration Thiamine HCl 200 mg 12/18/19 18:45 12/21/19 10:21 Vitamin B1 Injection - IVPB 12/21/19 22:00 200 mg Q8H [facility]LEX[facility] Administration Home Medications Medication Instructions Recorded Gabapentin 400 mg PO TID 12/16/19 Magnesium Oxide [Mag-Ox -] 400 mg PO BID 12/16/19 Propranolol HCl 10 mg PO BID 12/16/19 Cholecalciferol (Vitamin D3) 2,000 unit PO DAILY 12/17/19 [Vitamin D3] Docusate Sodium [Colace] 200 mg PO HS 12/17/19 Doxepin HCl 50 mg PO HS 12/17/19 Polyethylene Glycol 3350 [Miralax 17 gm PO ASDIR 12/17/19 (For Daily Use) -] Quetiapine Fumarate [Seroquel -] 100 mg PO AM 12/17/19 Quetiapine Fumarate [Seroquel -] 150 mg PO HS 12/17/19 12/16/19 18:55 Urine - Urine Clean Catch Urine Culture - Final Mr Marie Aureus 12/18/19 06:15 Blood - Peripheral Venous Blood Culture - Preliminary NO GROWTH OBTAINED AFTER 24 HOURS, INCUBATION TO CONTINUE FOR 4 DAYS. 12/18/19 06:00 Blood - Peripheral Venous Blood Culture - Preliminary NO GROWTH OBTAINED AFTER 24 HOURS, INCUBATION TO CONTINUE FOR 4 DAYS. EKG--> 1st degree AV block, left axis deviation, QRS widening and LVH, no ST segment changes, QTc 520 ASSESSMENT/PLAN: Patient is a 69yom with PMHx of genetic cerebellar ataxia, insomnia, depression , HTN, bipolar disorder, schizoaffective disorder admitted for s/p fall with difficulty to ambulate with RLE cellultis and was found to have UTI. # Acute MRSA UTI on Vancomycin IV continue s/p azactam since it MRSA , will check with ID the length of treatment #R valerio cellulitis with 2nd toe cellulitis: ON VAnco as per ID, blood cx neg. #MARKO O iv hYDration #macrocytic Anemia with nl folic acid and B12. 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 #Poor Ability to Ambulate with hx of of cerebellar ataxia (age 3 ) DVT PPx: heparin 5000 follow EKG for am blanquita with dakotah for capacity
[2019-12-21] MEDS: MIRTAZAPINE 15 MG TABLET (FP) PO SCH (22:01)
[2019-12-22] MEDS: LACTATED RINGERS SOLUTION 1,000 ML/1,000 ML INFUS.BAG IV SCH ×2 (01:14→21:37)
[2019-12-22] MEDS: VANCOMYCIN 1 GRAM (PRE-DOCKED) 1,000 MG/250 ML BAG IVPB SCH ×2 (01:20→12:52)
[2019-12-22] MEDS: HEPARIN NA (PORCINE) 5,000 UNITS/ML 1ML VIAL SQ SCH ×3 (05:59→21:37)
[2019-12-22] MEDS: ACETAMINOPHEN 325 MG TABLET (FP) PO PRN ×2 (06:00→18:48)
[2019-12-22 07:44] LABS: HEMATOCRIT 29.2 % (35.4-49); HEMOGLOBIN 9.9 GM/dL (11.7-16.9); MCH 34.2 pg (25.7-33.7); MEAN CELL VOLUME 100.6 fl (80-96); MEAN PLT VOLUME 7.7 fl (7.5-11.1); PLATELET COUNT 233 K/MM3 (134-434); RDW 17.9 % (11.9-15.9); WHITE BLOOD COUNT 6.6 K/mm3 (4.0-10.0)
[2019-12-22 08:12] LABS: ALBUMIN 2.1 g/dl (3.4-5.0); BILIRUBIN,TOTAL 1.4 mg/dL (0.2-1); BLOOD UREA NITROGEN 6.5 mg/dL (7-18); CALCIUM 8.2 mg/dL (8.5-10.1); CREATININE 0.6 mg/dL (0.55-1.3); POTASSIUM 3.7 mmol/L (3.5-5.1); TOT PROT 6.3 g/dl (6.4-8.2)
[2019-12-22] MEDS: DOCUSATE SODIUM 100 MG CAPSULE (FP) PO SCH ×2 (09:31→21:37)
[2019-12-22] MEDS: MULTIVITAMINS (DAILY MVI) TABLET (FP) PO SCH (09:31)
[2019-12-22] MEDS: FOLIC ACID 1 MG TABLET (FP) PO SCH (09:31)
[2019-12-22] MEDS: MAGNESIUM OXIDE 400 MG TABLET (FP) PO SCH (09:32)
[2019-12-22] MEDS: GABAPENTIN 400 MG CAPSULE PO SCH (09:33)
--- NOTE | 2019-12-22 15:34 | PN ---
Physical Exam: SUBJECTIVE: Patient seen and examined at bedside. There were no acute events overnight. This AM her says he feels well and pain is under control. OBJECTIVE: Vital Signs Temp Pulse Resp BP Pulse Ox 98.5 F 74 16 106/64 95 12/22/19 10:21 12/22/19 10:21 12/22/19 10:21 12/22/19 10:21 12/21/19 21:00 GENERAL: AOx3, in no acute distress. HEAD: NCAT EYES: EBONI, EOMI, conjunctiva clear. ENT: Ears normal, nares patent, oropharynx clear without exudates. Moist mucous membranes. NECK: Normal range of motion, supple without lymphadenopathy, JVD, or masses. LUNGS: CTAB. No wheezes, and no crackles. No accessory muscle use. HEART: RRR s1 s2 ABDOMEN: Soft, BS present in all 4 quadrants, non-distended, no JVD, MUSCULOSKELETAL: No bony deformities or tenderness. No CVA tenderness. UPPER EXTREMITIES: 2+ pulses, warm, well-perfused. No cyanosis. No clubbing. No peripheral edema. LOWER EXTREMITIES: RIGHT 1x1 open lesion on extensor surface with purulence; surrounding erythema, NT. 2+ pulses, warm, well-perfused. No calf tenderness. No peripheral edema. NEUROLOGICAL: Cranial nerves II-XII intact. 4/5 muscle strength on the bilateral lower extremities. 5/5 on the upper extremities. Sensation intact to gross touch throughout. Dysmetria on FTN R>L. PSYCHIATRIC: Somewhat cooperative. Tangential and pressured speech. Non-violent and non-frightening delusional thought. SKIN: Overall improvement in appearance of diffuse bruises. Healed extensor surface lesions on LE digits. 6cm in diameter, round, area of errythema mid- thorax. Laboratory Results - last 24 hr 12/22/19 12/22/19 07:00 07:00 WBC 6.6 RBC 2.90 L Hgb 9.9 L Hct 29.2 L MCV 100.6 H MCH 34.2 H MCHC 34.0 RDW 17.9 H Plt Count 233 D MPV 7.7 Sodium 141 Potassium 3.7 Chloride 110 H Carbon Dioxide 24 Anion Gap 7 L BUN 6.5 L Creatinine 0.6 Est GFR (CKD-EPI)AfAm 118.90 Est GFR (CKD-EPI)NonAf 102.59 Random Glucose 74 Calcium 8.2 L Total Bilirubin 1.4 H AST 31 ALT 21 Alkaline Phosphatase 159 H Total Protein 6.3 L Albumin 2.1 L Active Medications Acetaminophen (Tylenol -) 650 mg PO Q6H PRN PRN Reason: PAIN 5-6 Last Admin: 12/22/19 06:00 Dose: 650 mg Docusate Sodium (Colace -) 100 mg PO BID [facility] Last Admin: 12/22/19 09:31 Dose: 100 mg Folic Acid (Folic Acid -) 1 mg PO DAILY [facility] Last Admin: 12/22/19 09:31 Dose: 1 mg Gabapentin (Neurontin -) 400 mg PO DAILY [facility] Last Admin: 12/22/19 09:33 Dose: 400 mg Heparin Sodium (Porcine) (Heparin -) 5,000 unit SQ TID [facility] Last Admin: 12/22/19 05:59 Dose: 5,000 unit Lactated Ringer's (Lactated Ringers Solution) 1,000 ml in 1,000 mls @ 75 mls/ hr IV ASDIR [facility] Last Admin: 12/22/19 01:14 Dose: Not Given Vancomycin HCl (Vancomycin (Pre-Docked)) 1,000 mg in 250 mls @ 166.667 mls/hr IVPB Q12H [facility]; Protocol Last Admin: 12/22/19 12:52 Dose: 166.667 mls/hr Magnesium Oxide (Mag-Ox -) 400 mg PO DAILY [facility] Last Admin: 12/22/19 09:32 Dose: 400 mg Mirtazapine (Remeron -) 15 mg PO HS [facility] Last Admin: 12/21/19 22:01 Dose: 15 mg Multivitamins/Minerals/Vitamin C (Tab-A-Vit -) 1 tab PO DAILY [facility] Last Admin: 12/22/19 09:31 Dose: 1 tab Propranolol HCl (Inderal -) 10 mg PO DAILY [facility] Last Admin: 12/22/19 09:34 Dose: 10 mg ASSESSMENT/PLAN: 69 y/o male PMH HTN, genetic cerebellar ataxia, insomnia, depression, bipolar disorder, schizoaffective disorder admitted for poor ability to ambulate likely secondary to cerebellar ataxia and UTI. # RIGHT LE extensor surface cellulitis, distal LE cellulitis - Wound smaller and area of erythema less defined but still purulent - F/u wound culture sent today - Wound cleaned and dressing changed today - Vancomycin 1 gm IV BID # Schizoaffective disorder/bipolar depression - Awaiting evaluation s/p psychiatric med regimen change - Consult psych: DC seroquel, reduce mirtazepine, reduce buproprion, PT LACKS CAPACITY - New regimen: buproprion 100 mg po qd, mirtazapine 15 mg po qd # Difficulty ambulating - Cerebellar ataxia (age 3) - PT: Walks 50' with assistance; continues exercise - Fall precautions - s/p thiamine # Transaminitis, resolved - RUQ US: contracted gb, heterogenous liver suspicious for hepatocellular disease - AST/ALT normal today 37/25 - Hep panel NEG # UTI - Denies dysuria - MRSA # F/E/N - NS - Cont. to monitor - Low sodium diet # DVT prophylaxis - Heparin SQ # Disposition - Med/surg - Outpatient alcohol treatment program such as [facility] - Outpatient neuro f/u for eval of neuropathy Sumit Lebron MD Visit type - Emergency Visit Emergency Visit: No - New Patient This patient is new to me today: No - Critical Care Critical Care patient: No ATTENDING PHYSICIAN STATEMENT I saw and evaluated the patient. I reviewed the resident's note and discussed the case with the resident. I agree with the resident's findings and plan as documented. SUBJECTIVE: OBJECTIVE: ASSESSMENT AND PLAN:
--- NOTE | 2019-12-22 17:26 | PN ---
Teaching Attending Note Name of Resident: Sumit Lebron ATTENDING PHYSICIAN STATEMENT I saw and evaluated the patient. I reviewed the resident's note and discussed the case with the resident. I agree with the resident's findings and plan as documented. SUBJECTIVE: Patient is better, no fever or chills, no shortness of breath. Vital Signs Temperature 98.5 F 12/22/19 10:21 Pulse Rate 74 12/22/19 10:21 Respiratory Rate 16 12/22/19 10:21 Blood Pressure 106/64 12/22/19 10:21 O2 Sat by Pulse Oximetry (%) 95 12/21/19 21:00 GENERAL: The patient is awake, alert, and fully oriented, in no acute distress. HEAD: Normal with no signs of trauma. EYES: PERRL, extraocular movements intact, sclera anicteric, conjunctiva clear. ENT: Ears normal, oropharynx clear without exudates, moist mucous membranes. NECK: Trachea midline, full range of motion, supple. LUNGS: Breath sounds equal, clear to auscultation bilaterally, no wheezes, no crackles, no accessory muscle use. HEART: Regular rate and rhythm, S1, S2 without murmur, rub or gallop. ABDOMEN: Soft, nontender, nondistended, normoactive bowel sounds, no guarding, no rebound, no hepatosplenomegaly, no masses. EXTREMITIES: 2+ pulses, warm, well-perfused, RLE cellulitis improving with open wound with pus (cultured today) NEUROLOGICAL: Cranial nerves II through XII grossly intact. Normal speech, gait not observed. PSYCH: Normal mood, normal affect. SKIN: Warm, dry, normal turgor, multiple bruised lEs due to fall CBCD WBC 6.6 K/mm3 (4.0-10.0) 12/22/19 07:00 RBC 2.90 M/mm3 (4.00-5.60) L 12/22/19 07:00 Hgb 9.9 GM/dL (11.7-16.9) L 12/22/19 07:00 Hct 29.2 % (35.4-49) L 12/22/19 07:00 MCV 100.6 fl (80-96) H 12/22/19 07:00 MCHC 34.0 g/dl (32.0-35.9) 12/22/19 07:00 RDW 17.9 % (11.9-15.9) H 12/22/19 07:00 Plt Count 233 K/MM3 (134-434) D 12/22/19 07:00 MPV 7.7 fl (7.5-11.1) 12/22/19 07:00 CMP Sodium 141 mmol/L (136-145) 12/22/19 07:00 Potassium 3.7 mmol/L (3.5-5.1) 12/22/19 07:00 Chloride 110 mmol/L (98-107) H 12/22/19 07:00 Carbon Dioxide 24 mmol/L (21-32) 12/22/19 07:00 Anion Gap 7 MMOL/L (8-16) L 12/22/19 07:00 BUN 6.5 mg/dL (7-18) L 12/22/19 07:00 Creatinine 0.6 mg/dL (0.55-1.3) 12/22/19 07:00 Random Glucose 74 mg/dL (74-106) 12/22/19 07:00 Calcium 8.2 mg/dL (8.5-10.1) L 12/22/19 07:00 Total Bilirubin 1.4 mg/dL (0.2-1) H 12/22/19 07:00 AST 31 U/L (15-37) 12/22/19 07:00 ALT 21 U/L (13-61) 12/22/19 07:00 Alkaline Phosphatase 159 U/L (45-117) H 12/22/19 07:00 Total Protein 6.3 g/dl (6.4-8.2) L 12/22/19 07:00 Albumin 2.1 g/dl (3.4-5.0) L 12/22/19 07:00 CARDIAC ENZYMES Creatine Kinase 136 U/L (26-308) 12/17/19 06:04 Troponin I < 0.02 ng/ml (0.00-0.05) 12/16/19 14:30 Current Medications Generic Name Dose Route Start Last Admin Trade Name Freq PRN Reason Stop Dose Admin Acetaminophen 650 mg 12/20/19 00:07 12/22/19 06:00 Tylenol - PO 650 mg Q6H PRN Administration PAIN 5-6 Docusate Sodium 100 mg 12/17/19 10:00 12/22/19 09:31 Colace - PO 100 mg BID ALEXIA Administration Folic Acid 1 mg 12/17/19 10:00 12/22/19 09:31 Folic Acid - PO 1 mg DAILY [facility]LEX[facility] Administration Gabapentin 400 mg 12/17/19 10:00 12/22/19 09:33 Neurontin - PO 400 mg DAILY ALEXIA Administration Heparin Sodium (Porcine) 5,000 unit 12/17/19 06:00 12/22/19 05:59 Heparin - SQ 5,000 unit TID ALEXIA Administration Lactated Ringer's 1,000 ml in 1,000 mls @ 75 mls/hr 12/16/19 23:45 12/22/19 01:14 Lactated Ringers Solution IV Not Given ASDIR ALEX[facility] Vancomycin HCl 1,000 mg in 250 mls @ 166.667 mls/hr 12/17/19 13:00 12/22/19 12:52 Vancomycin (Pre-Docked) IVPB 166.667 mls/hr Q12H [facility]LEX[facility] Administration Protocol Magnesium Oxide 400 mg 12/17/19 10:00 12/22/19 09:32 Mag-Ox - PO 400 mg DAILY [facility]LEX[facility] Administration Mirtazapine 15 mg 12/18/19 22:00 12/21/19 22:01 Remeron - PO 15 mg HS ALEXIA Administration Multivitamins/Minerals/Vitamin C 1 tab 12/17/19 10:00 12/22/19 09:31 Tab-A-Vit - PO 1 tab DAILY [facility]LEX[facility] Administration Propranolol HCl 10 mg 12/17/19 10:00 12/22/19 09:34 Inderal - PO 10 mg DAILY ALEXIA Administration Home Medications Medication Instructions Recorded Gabapentin 400 mg PO TID 12/16/19 Magnesium Oxide [Mag-Ox -] 400 mg PO BID 12/16/19 Propranolol HCl 10 mg PO BID 12/16/19 Cholecalciferol (Vitamin D3) 2,000 unit PO DAILY 12/17/19 [Vitamin D3] Docusate Sodium [Colace] 200 mg PO HS 12/17/19 Doxepin HCl 50 mg PO HS 12/17/19 Polyethylene Glycol 3350 [Miralax 17 gm PO ASDIR 12/17/19 (For Daily Use) -] Quetiapine Fumarate [Seroquel -] 100 mg PO AM 12/17/19 Quetiapine Fumarate [Seroquel -] 150 mg PO HS 12/17/19 12/16/19 18:55 Urine - Urine Clean Catch Urine Culture - Final Mr Marie Aureus 12/18/19 06:15 Blood - Peripheral Venous Blood Culture - Preliminary NO GROWTH OBTAINED AFTER 24 HOURS, INCUBATION TO CONTINUE FOR 4 DAYS. 12/18/19 06:00 Blood - Peripheral Venous Blood Culture - Preliminary NO GROWTH OBTAINED AFTER 24 HOURS, INCUBATION TO CONTINUE FOR 4 DAYS. EKG--> 1st degree AV block, left axis deviation, QRS widening and LVH, no ST segment changes, QTc 520 ASSESSMENT/PLAN: Patient is a 69yom with PMHx of genetic cerebellar ataxia, insomnia, depression , HTN, bipolar disorder, schizoaffective disorder admitted for s/p fall with difficulty to ambulate with RLE cellultis and was found to have UTI. # Acute MRSA UTI on Vancomycin IV continue s/p azactam since it MRSA , will check with ID the length of treatment #R valerio cellulitis with open wound now with discharge (Pus) with 2nd toe cellulitis: ON VAnco as per ID, blood cx neg. follow wound cx, use silvadene cream with xeroform to cover. #MARKO O iv hYDration #macrocytic Anemia with nl folic acid and B12. 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 #Poor Ability to Ambulate with hx of of cerebellar ataxia (age 3 ) DVT PPx: heparin 5000 follow EKG for am placed consult with to reaccess his mental capacity Follow repeat EKG for Qtc prolongation since was 520 on admission
[2019-12-22] MEDS: MIRTAZAPINE 15 MG TABLET (FP) PO SCH (21:37)
--- NOTE | 2019-12-22 22:29 | PN ---
Mental Health Exam - Mental Status Exam Alert and Oriented to: Time, Place ([place]atching [place] speech, with intrest. ), Person Cognitive Function: Grossly Intact Patient Appearance: Unkempt Mood: Expansive, Hopeful Affect: Appropriate Patient Behavior: Talkative, Cooperative Speech Pattern: Rambling, Pressured Voice Loudness: Mildly Loud Thought Process: Tangential, Goal Oriented Thought Disorder: Not Present Hallucinations: None, Denies Suicidal Ideation: None, Denies Homicidal Ideation: None Insight/Judgement: Poor (does not acknowledge he has alchol abuse issue. ) Sleep: Fair Appetite: Poor (emaciated appearance. ) Muscle strength/Tone: Severe Hypertonicity Gait/Station: Deferred Additional Comments: 69 yoanna old male with long History of Scizo affective, manic-Depressive disorder. History of Alcohol abuse admitted with infections. He apparantly is able to care for himself. Lives in a very poor living conditions. Last seen By Dr Yun on 12/18/2019 at 11am. He appears improved in mental status, denies suicidal or homicidal ideation. Client claims that he was seen at [facility] in past, with admissions. Has a long psychiatric history. Currently he is more orientated, is aware of some risks, but requesting discharge. plan. continue current medication, remeron 17 mg at night, wellbutrin 100mg po od. Not acknowledge his substance abuse, with consequences. Client has cognitive capacity to self determine,. Social Work consult, Home visit referral,. Day program.
[2019-12-23] MEDS: VANCOMYCIN 1 GRAM (PRE-DOCKED) 1,000 MG/250 ML BAG IVPB SCH (00:40)
[2019-12-23] MEDS: ACETAMINOPHEN 325 MG TABLET (FP) PO PRN ×3 (00:41→18:49)
[2019-12-23] MEDS: LACTATED RINGERS SOLUTION 1,000 ML/1,000 ML INFUS.BAG IV SCH (05:07)
[2019-12-23] MEDS: HEPARIN NA (PORCINE) 5,000 UNITS/ML 1ML VIAL SQ SCH ×3 (05:39→21:17)
[2019-12-23 07:54] LABS: HEMATOCRIT 25.9 % (35.4-49); HEMOGLOBIN 8.9 GM/dL (11.7-16.9); MCH 34.3 pg (25.7-33.7); MCHC 34.5 g/dl (32.0-35.9); MEAN CELL VOLUME 99.3 fl (80-96); MEAN PLT VOLUME 7.8 fl (7.5-11.1); PLATELET COUNT 246 K/MM3 (134-434); RBC 2.61 M/mm3 (4.00-5.60); RDW 17.5 % (11.9-15.9); WHITE BLOOD COUNT 5.4 K/mm3 (4.0-10.0)
[2019-12-23 08:02] LABS: ALBUMIN 1.9 g/dl (3.4-5.0); BILIRUBIN,TOTAL 1.1 mg/dL (0.2-1); BLOOD UREA NITROGEN 8.4 mg/dL (7-18); CALCIUM 8.3 mg/dL (8.5-10.1); CREATININE 0.6 mg/dL (0.55-1.3); MAGNESIUM 1.6 mg/dL (1.8-2.4); POTASSIUM 3.5 mmol/L (3.5-5.1)
[2019-12-23] MEDS: GABAPENTIN 400 MG CAPSULE PO SCH (09:33)
[2019-12-23] MEDS: MULTIVITAMINS (DAILY MVI) TABLET (FP) PO SCH (09:34)
[2019-12-23] MEDS: MAGNESIUM OXIDE 400 MG TABLET (FP) PO SCH (09:34)
[2019-12-23] MEDS: FOLIC ACID 1 MG TABLET (FP) PO SCH (09:34)
[2019-12-23] MEDS: DOCUSATE SODIUM 100 MG CAPSULE (FP) PO SCH ×2 (09:34→21:17)
--- NOTE | 2019-12-23 10:55 | PN ---
Progress Note, Physician History of Present Illness: SUPINE IN BED REPORTS LESS R LEG PAIN NO WOUND DRAINAGE REPORTED AFEBRILE WBC IMPROVED WNL BC (-) - Current Medication List Current Medications: Active Medications Acetaminophen (Tylenol -) 650 mg PO Q6H PRN PRN Reason: PAIN 5-6 Last Admin: 12/23/19 00:41 Dose: 650 mg Docusate Sodium (Colace -) 100 mg PO BID [facility] Last Admin: 12/23/19 09:34 Dose: 100 mg Folic Acid (Folic Acid -) 1 mg PO DAILY [facility] Last Admin: 12/23/19 09:34 Dose: 1 mg Gabapentin (Neurontin -) 400 mg PO DAILY [facility] Last Admin: 12/23/19 09:33 Dose: 400 mg Heparin Sodium (Porcine) (Heparin -) 5,000 unit SQ TID [facility] Last Admin: 12/23/19 05:39 Dose: 5,000 unit Vancomycin HCl (Vancomycin (Pre-Docked)) 1,000 mg in 250 mls @ 166.667 mls/hr IVPB Q12H [facility]; Protocol Last Admin: 12/23/19 00:40 Dose: 166.667 mls/hr Magnesium Oxide (Mag-Ox -) 400 mg PO DAILY [facility] Last Admin: 12/23/19 09:34 Dose: 400 mg Mirtazapine (Remeron -) 15 mg PO HS [facility] Last Admin: 12/22/19 21:37 Dose: 15 mg Multivitamins/Minerals/Vitamin C (Tab-A-Vit -) 1 tab PO DAILY [facility] Last Admin: 12/23/19 09:34 Dose: 1 tab Propranolol HCl (Inderal -) 10 mg PO DAILY [facility] Last Admin: 12/23/19 09:34 Dose: 10 mg - Objective Vital Signs: Vital Signs Temperature 98.2 F 12/23/19 09:04 Pulse Rate 77 12/23/19 09:04 Respiratory Rate 18 12/23/19 09:04 Blood Pressure 143/72 12/23/19 09:04 O2 Sat by Pulse Oximetry (%) 95 12/21/19 21:00 Constitutional: Yes: No Distress Cardiovascular: Yes: Regular Rate and Rhythm, S1, S2 Respiratory: Yes: CTA Bilaterally Gastrointestinal: Yes: Normal Bowel Sounds, Soft. No: Tenderness Extremities: Yes: Other (DECREASED ERYTHEMA R LE DRY ABRASIONS) Labs: CBC, BMP 12/23/19 06:35 12/23/19 06:35 INR, PTT INR 1.15 (0.83-1.09) H 12/16/19 14:30 Assessment/Plan CELLULITIS IMPROVED + URINE C/S MRSA PCN ALLERGY SUBSTITUTE BACTRIM DS PO BID X 7D
--- NOTE | 2019-12-23 11:35 | EKG ---
Test Reason : Blood Pressure : / mmHG Vent. Rate : 076 BPM Atrial Rate : 076 BPM P-R Int : 184 ms QRS Dur : 120 ms QT Int : 426 ms P-R-T Axes : 028 -35 045 degrees QTc Int : 479 ms NORMAL SINUS RHYTHM POSSIBLE LEFT ATRIAL ENLARGEMENT LEFT AXIS DEVIATION LEFT VENTRICULAR HYPERTROPHY WITH QRS WIDENING ABNORMAL ECG WHEN COMPARED WITH ECG OF 16-DEC-2019 14:31, [place] INTERVAL HAS DECREASED Confirmed by Gatito Sharpe MD ([id number]) on 12/23/2019 11:35:40 AM Referred By: SHAKIR BLACK DR Confirmed By:Gatito Sharpe MD
[2019-12-23] MEDS: SULFAMETHOXAZOLE/TRIMETHOPRIM 800MG/160MG D.S. TABLET PO SCH ×2 (12:43→21:17)
--- NOTE | 2019-12-23 14:54 | PN ---
Physical Exam: SUBJECTIVE: Patient seen and examined at bedside. There were no acute events overnight. This AM he offers no new complaints. OBJECTIVE: Vital Signs Temp Pulse Resp BP Pulse Ox 98.4 F 68 18 145/76 97 12/23/19 19:24 12/23/19 19:24 12/23/19 19:24 12/23/19 19:24 12/23/19 09:00 GENERAL: AOx3, in no acute distress. HEAD: NCAT EYES: EBONI, EOMI, conjunctiva clear. ENT: Ears normal, nares patent, oropharynx clear without exudates. Moist mucous membranes. NECK: Normal range of motion, supple without lymphadenopathy, JVD, or masses. LUNGS: CTAB. No wheezes, and no crackles. No accessory muscle use. HEART: RRR s1 s2 ABDOMEN: Soft, BS present in all 4 quadrants, non-distended, no JVD, MUSCULOSKELETAL: No bony deformities or tenderness. No CVA tenderness. UPPER EXTREMITIES: 2+ pulses, warm, well-perfused. No cyanosis. No clubbing. No peripheral edema. LOWER EXTREMITIES: RIGHT 1x1 open lesion on extensor surface, surrounding erythema, NT. 2+ pulses, warm, well-perfused. No calf tenderness. No peripheral edema. NEUROLOGICAL: Cranial nerves II-XII intact. 4/5 muscle strength on the bilateral lower extremities. 5/5 on the upper extremities. Sensation intact to gross touch throughout. Dysmetria on FTN R>L. PSYCHIATRIC: Somewhat cooperative. Tangential and pressured speech. Non-violent and non-frightening delusional thought. SKIN: Overall improvement in appearance of diffuse bruises. Healed extensor surface lesions on LE digits. 6cm in diameter, round, area of errythema mid- thorax. Laboratory Results - last 24 hr 12/23/19 12/23/19 06:35 06:35 WBC 5.4 RBC 2.61 L Hgb 8.9 L Hct 25.9 L MCV 99.3 H MCH 34.3 H MCHC 34.5 RDW 17.5 H Plt Count 246 MPV 7.8 Sodium 142 Potassium 3.5 Chloride 110 H Carbon Dioxide 26 Anion Gap 7 L BUN 8.4 Creatinine 0.6 Est GFR (CKD-EPI)AfAm 118.90 Est GFR (CKD-EPI)NonAf 102.59 Random Glucose 105 Calcium 8.3 L Magnesium 1.6 L Total Bilirubin 1.1 H AST 31 ALT 18 Alkaline Phosphatase 173 H Total Protein 6.0 L Albumin 1.9 L Active Medications Acetaminophen (Tylenol -) 650 mg PO Q6H PRN PRN Reason: PAIN 5-6 Last Admin: 12/23/19 18:49 Dose: 650 mg Bupropion HCl (Wellbutrin -) 100 mg PO [facility]ILY [facility] Docusate Sodium (Colace -) 100 mg PO BID [facility] Last Admin: 12/23/19 21:17 Dose: Not Given Folic Acid (Folic Acid -) 1 mg PO DAILY [facility] Last Admin: 12/23/19 09:34 Dose: 1 mg Gabapentin (Neurontin -) 400 mg PO DAILY [facility] Last Admin: 12/23/19 09:33 Dose: 400 mg Heparin Sodium (Porcine) (Heparin -) 5,000 unit SQ TID [facility] Last Admin: 12/23/19 21:17 Dose: 5,000 unit Magnesium Oxide (Mag-Ox -) 400 mg PO DAILY [facility] Last Admin: 12/23/19 09:34 Dose: 400 mg Mirtazapine (Remeron -) 15 mg PO HS [facility] Last Admin: 12/23/19 21:17 Dose: 15 mg Multivitamins/Minerals/Vitamin C (Tab-A-Vit -) 1 tab PO DAILY [facility] Last Admin: 12/23/19 09:34 Dose: 1 tab Propranolol HCl (Inderal -) 10 mg PO DAILY [facility] Last Admin: 12/23/19 09:34 Dose: 10 mg Trimethoprim/Sulfamethoxazole (Bactrim Ds -) 1 each PO BID [facility] Last Admin: 12/23/19 21:17 Dose: 1 each ASSESSMENT/PLAN: 69 y/o male PMH HTN, genetic cerebellar ataxia, insomnia, depression, bipolar disorder, schizoaffective disorder admitted for poor ability to ambulate likely secondary to cerebellar ataxia and UTI. # RIGHT LE extensor surface cellulitis, distal LE cellulitis - Wound smaller and area of erythema less defined - Wound culture pending - Bactrim po bid for 1 week # Schizoaffective disorder/bipolar depression - Pt has capacity per psych - Continue buproprion 100 mg po qd, mirtazapine 15 mg po qd # Difficulty ambulating - Cerebellar ataxia (age 3) - PT: Walks 50' with assistance; continues exercise - Fall precautions - s/p thiamine # F/E/N - NS - Cont. to monitor - Low sodium diet # DVT prophylaxis - Heparin SQ # Disposition - Med/surg - Outpatient alcohol treatment program such as [facility] - Outpatient neuro f/u for eval of neuropathy Sumit Lebron MD Visit type - Emergency Visit Emergency Visit: No - New Patient This patient is new to me today: No - Critical Care Critical Care patient: No ATTENDING PHYSICIAN STATEMENT I saw and evaluated the patient. I reviewed the resident's note and discussed the case with the resident. I agree with the resident's findings and plan as documented. SUBJECTIVE: OBJECTIVE: ASSESSMENT AND PLAN:
[2019-12-23] MEDS ORDERED: MAGNESIUM OXIDE 400 MG TABLET (FP) PO ONE (19:23)
--- NOTE | 2019-12-23 19:29 | PN ---
Teaching Attending Note Name of Resident: Sumit Lebron ATTENDING PHYSICIAN STATEMENT I saw and evaluated the patient. I reviewed the resident's note and discussed the case with the resident. I agree with the resident's findings and plan as documented. SUBJECTIVE: seen around 11 am no fever or chills. generalized aches. no N/V . no SOB . no cp . OBJECTIVE: NAD , cooperative CV: RRR, 3/6 SM all over the precordium Lungs: CTAB Abd: sfot, NT, Nd NL BS ext : No edema , L avlerio superficial wound with slough and surrounding erythema ASSESSMENT AND PLAN: 69 y/o man with h/o genetic cerebellar ataxia, insomnia, depression, HTN, bipolar disorder, schizoaffective disorder, alcohol abuse who presented with AMS and falls and was found to have UTi adn cellulitis 1- MRSA UTI 2- Cellulitis of L valerio with infected wound 3- H/o Bipolar and schizoaffetive disorder 4- Falls 5- metabolic encephalopathy, due to infection , resolved. now at base line. 6- MARKO : resolved 7- hypomagnesemia 8- H/o HTN 9- possible cirrhosis on images with varices. 10 - C6-7 degenerative disc disease 11- T 6 compression Fx 12 - prolonged QTc plan : - Bactrim MONTANO for 7 more days - follow wound cx - appreciate Psych: capable of making decisions - replete Mg and cont daily po mg - no signs of withdrawal - cont propranolol - will ask psych about his Doxapine. - per psych he is off Seroquel . start recommended dose of wellbutrin - f/u with GI as out pt for possible cirrhosis on imaging - f/u w with neuro sx regarding C6-7 disc disease and T 6 Fx. Possible dc to [facility] tomorrow
[2019-12-23] MEDS: MIRTAZAPINE 15 MG TABLET (FP) PO SCH (21:17)
[2019-12-24] MEDS ORDERED: ACETAMINOPHEN 1000 MG/100 ML VIAL (NON FORMULARY) IVPB PRN (02:24)
[2019-12-24] MEDS: HEPARIN NA (PORCINE) 5,000 UNITS/ML 1ML VIAL SQ SCH (05:13)
[2019-12-24] MEDS: SULFAMETHOXAZOLE/TRIMETHOPRIM 800MG/160MG D.S. TABLET PO SCH (09:36)
[2019-12-24] MEDS: FOLIC ACID 1 MG TABLET (FP) PO SCH (09:36)
[2019-12-24] MEDS: MAGNESIUM OXIDE 400 MG TABLET (FP) PO SCH (09:36)
[2019-12-24] MEDS: DOCUSATE SODIUM 100 MG CAPSULE (FP) PO SCH (09:36)
[2019-12-24] MEDS: MULTIVITAMINS (DAILY MVI) TABLET (FP) PO SCH (09:36)
[2019-12-24] MEDS: GABAPENTIN 400 MG CAPSULE PO SCH (09:37)
[2019-12-24 09:47] VITALS: BP 128/71; PULSE 74; TEMP 98.2
[2019-12-24] MEDS ORDERED: buPROPion HCL 100 MG TABLET PO SCH (10:00)
--- NOTE | 2019-12-24 12:34 | DS ---
Physical Exam: SUBJECTIVE: Patient seen and examined at bedside. There were no acute events overnight. This AM he offers no new complaints. OBJECTIVE: Vital Signs Period Temp Pulse Resp BP Sys/Penn Pulse Ox Last 24 Hr 98 F-98.4 F 64-75 18-20 112-145/61-77 92-97 PHYSICAL EXAM GENERAL: AOx3, in no acute distress. HEAD: NCAT EYES: EBONI, EOMI, conjunctiva clear. ENT: Ears normal, nares patent, oropharynx clear without exudates. Moist mucous membranes. NECK: Normal range of motion, supple without lymphadenopathy, JVD, or masses. LUNGS: CTAB. No wheezes, and no crackles. No accessory muscle use. HEART: RRR s1 s2 ABDOMEN: Soft, BS present in all 4 quadrants, non-distended, no JVD, MUSCULOSKELETAL: No bony deformities or tenderness. No CVA tenderness. UPPER EXTREMITIES: 2+ pulses, warm, well-perfused. No cyanosis. No clubbing. No peripheral edema. LOWER EXTREMITIES: RIGHT 1x1 open lesion on extensor surface, surrounding erythema, NT. 2+ pulses, warm, well-perfused. No calf tenderness. No peripheral edema. NEUROLOGICAL: Cranial nerves II-XII intact. 4/5 muscle strength on the bilateral lower extremities. 5/5 on the upper extremities. Sensation intact to gross touch throughout. Dysmetria on FTN R>L. PSYCHIATRIC: Somewhat cooperative. Tangential and pressured speech. Non-violent and non-frightening delusional thought. SKIN: Overall improvement in appearance of diffuse bruises. Healed extensor surface lesions on LE digits. 6cm in diameter, round, area of errythema mid-thorax. LABS CBC, BMP 12/23/19 06:35 12/23/19 06:35 HOSPITAL COURSE: Date of Admission:12/16/19 69 y/o male PMH HTN, genetic cerebellar ataxia, insomnia, depression, bipolar disorder, schizoaffective disorder admitted for poor ability to ambulate likely secondary to cerebellar ataxia and UTI. There was some question of etoh misuse but pt has been actively participating in a day program and has not abused etoh in recent months; s/p thiamine. He presentation was notable for diffuse bruising all over his body. He is s/p bactrim for RIGHT LE extensor surface cellulitis, distal LE cellulitis culture: MSSA. Otherwise his ecchymoses healed well during stay. He reports attempting to walk and falling despite being told he needs assistance with ambulation. Schizoaffective disorder/bipolar depression was treated with home regimen, now including doxepine 25 mg q HS, remeron 17 mg at night, wellbutrin 100mg po od. It was determined he has capacity per psych. He denies homicidal/suicidal ideation. He is to f/u with GI as out-pt for possible cirrhosis seen on imaging and f/u w with neuro sx regarding C6-7 disc disease and T 6 Fx; block and case maker Lindsey made aware and referrals provided. He walked 50' with assistance with PT. He was dc home with [facility], and rec to cont. participation in program. Date of Discharge: 12/24/19 Minutes to complete discharge: 40 Discharge Summary Problems reviewed: Yes Reason For Visit: UTI, RECURRENT FALL, UNABLE TO WALK Condition: Improved - Instructions Diet, Activity, Other Instructions: You were admitted to hospital for acute confusion and evaluation of your leg wound and urinary tract infection. You were seen by the infectious disease physician and treated with IV antibiotics. You are stable for discharge home. You will take antibiotics Bactrim DS 1 tablet every 12 hours for the next 6 days. start this evening at 8 pm . Last day of antibiotics 12/30/2019. Your Remeron dose has been changed to 15mg in the evenings YOur Dozepin dose was changed to 25mg in the evenings. You are on Welbutrin 100mg daily. this is a new medication Your Seroquel was discontinued. DO NOT take this medication anymore. Continue taking your home medications as directed. Follow up with your primary care physician within one week of discharge Follow up with Dr. Isabel (infectious disease) for wound care within one week of discharge. A referral has been provided. Return to the nearest Emergency Department if you experience worsening symtpoms, subjective fevers, chills, shortness of breath, chest pain, palpitations, abdominal pain, nausea, vomiting. WOUND CARE: Xeroform dressings daily, with application of bacitracin ointment to the wound. Cover with gauze bandage. Keep area clean, and dry. Referrals: Maycol Isabel MD [Staff Physician] - Disposition: [facility]/HOME HEALTH CARE - Home Medications Comprehensive Discharge Medication List: Ambulatory Orders Gabapentin 400 mg PO TID 12/16/19 Magnesium Oxide [Mag-Ox -] 400 mg PO BID 12/16/19 Propranolol HCl 10 mg PO BID 12/16/19 Cholecalciferol (Vitamin D3) [Vitamin D3] 2,000 unit PO DAILY 12/17/19 Docusate Sodium [Colace] 200 mg PO HS 12/17/19 Polyethylene Glycol 3350 [Miralax 119 gm Btl -] 17 gm PO ASDIR 12/17/19 Bismuth Tribromoph/Petrolatum [Xeroform 5"X9" Gauze Strip] 1 each TP DAILY 7 Days #14 bandage 12/24/19 Bupropion HCl [Wellbutrin -] 100 mg PO DAILY 30 Days #30 tablet 12/24/19 Doxepin HCl [Sinequan -] 25 mg PO HS 30 Days #30 capsule 12/24/19 Folic Acid - 1 mg PO DAILY 30 Days #30 tablet 12/24/19 Gauze Bandage 1 each TP DAILY 7 Days #14 bandage 12/24/19 Mirtazapine [Remeron -] 15 mg PO HS 30 Days #30 tablet 12/24/19 Sulfamethoxazole/Trimethoprim [Bactrim DS -] 1 each PO BID 6 Days #12 tablet 12/24/19 This patient is new to me today: No Emergency Visit: No Critical Care patient: No - Discharge Referral Referred to [facility] No ATTENDING PHYSICIAN STATEMENT I saw and evaluated the patient. I reviewed the resident's note and discussed the case with the resident. I agree with the resident's findings and plan as documented. SUBJECTIVE: OBJECTIVE: ASSESSMENT AND PLAN:
--- NOTE | 2019-12-24 14:40 | PN ---
Teaching Attending Note Name of Resident: Sumit Lebron ATTENDING PHYSICIAN STATEMENT I saw and evaluated the patient. I reviewed the resident's note and discussed the case with the resident. I agree with the resident's findings and plan as documented. SUBJECTIVE: no pain , no fever or chills OBJECTIVE: NAD , cooperative CV: RRR, 3/6 SM all over the precordium Lungs: CTAB ext : No edema ,he declined R leg wound exam, but per resident evaluation earlier , wound and area look betetr ASSESSMENT AND PLAN: 69 y/o man with h/o genetic cerebellar ataxia, insomnia, depression, HTN, bipolar disorder, schizoaffective disorder, alcohol abuse who presented with AMS and falls and was found to have UTi and cellulitis 1- MRSA UTI 2- Cellulitis of R valerio with infected wound 3- H/o Bipolar and schizoaffetive disorder 4- Falls 5- metabolic encephalopathy, due to infection , resolved. now at base line. 6- MARKO : resolved 7- hypomagnesemia 8- H/o HTN 9- possible cirrhosis on images with varices. 10 - C6-7 degenerative disc disease 11- T 6 compression Fx 12 - prolonged QTc plan : - Bactrim DS to complete 7 days - follow wound cx with presumptive MRSA - no signs of withdrawal - cont propranolol - Case was d/w psych: resume Doxepine at 25 mg q HS instead of previous home dose of 50 mg HS - cont wellbutrin and remeron - f/u with GI as out pt for possible cirrhosis on imaging - f/u w with neuro sx regarding C6-7 disc disease and T 6 Fx. He was declined by insurance for rehab. He was dc 'd home with [facility] to go to his day care program. discharge instructions did not include GI and neuro sx f/u . will ezra patient and inform him and give referrals
== END 2019-12-24 12:00 | disposition home health service (06) | DRG 602 ==
LOC: JER 13:50 → JERBED 21:28 → J7W 12-17 23:09
PROVIDERS: ADMIT Internal Medicine; ATTEND Internal Medicine
DX: L03.115 Cellulitis of right lower limb (principal); G93.41 Metabolic encephalopathy; N39.0 Urinary tract infection, site not specified; N17.9 Acute kidney failure, unspecified; E46 Unspecified protein-calorie malnutrition; M62.82 Rhabdomyolysis; G11.9 Hereditary ataxia, unspecified; R64 Cachexia; E88.09 Other disorders of plasma-protein metabolism, not elsewhere classified; D64.9 Anemia, unspecified; K70.30 Alcoholic cirrhosis of liver without ascites; F10.10 Alcohol abuse, uncomplicated; F31.9 Bipolar disorder, unspecified; Z68.20 Body mass index [BMI] 20.0-20.9, adult; E83.42 Hypomagnesemia; F25.9 Schizoaffective disorder, unspecified; R74.0 Nonspecific elevation of levels of transaminase and lactic acid dehydrogenase [LDH]
CPT/HCPCS: 36415; 70450-TC; 71045-TC-FY; 71260-TC; 72125-TC; 74177-TC; 76705-TC; 80053; 80074; 80307; 81003; 82140; 82248; 82436; 82550; 82553; 82565; 82607; 82746; 83735; 84100; 84133; 84300; 84443; 84484; 85025; 85027; 85610; 85730; 86803; 87040; 87070; 87086; 87186; 87205; 93005; 93010; 97116-GP; 97162-GP; 99285-25; J1644; J7030; Q9967